=== PATIENT | male | born 1950 | race Two or more races ===

== ENCOUNTER 2024-06-12 08:50 | Outpatient (OUT) | payer MEDICARE, SELFPAY ==
--- NOTE | 2024-06-12 09:01 | ECG_ITS ---
[facility] Test Date: 2024-06-12 Pat Name: MARIA DE JESUS OMALLEY Department: Room: - Gender: Male Web Content Producer: : [id number] Requested By: [id number] Order Number: [id number] Reading MD: VIOLET MONTGOMERY Measurements Intervals Amory Rate: 44 P: 9 AK: 231 QRS: 56 QRSD: 111 T: 42 QT: 426 QTc: 366 Interpretive Statements SINUS BRADYCARDIA WITH FIRST DEGREE AV BLOCK INCOMPLETE RIGHT BUNDLE BRANCH BLOCK [90+ ms QRS DURATION, TERMINAL R IN V1/V2, 40+ ms S IN I/aVL/V4/V5/V6] No previous ECG available for comparison Electronically Signed On 06-12-2024 22:51:41 EST by VIOLET MONTGOMERY
[2024-06-12 10:00] LABS: Basophils Percent Auto 0.9 % (0.2-2.0); Eosinophils Absolute Auto 0.2 10^3/uL (0.0-0.7); Eosinophils Percent Auto 3.9 % (0.9-7.0); Hematocrit 38.8 % (42.0-54.0); Hemoglobin 13.2 g/dL (14.0-18.0); Immature Granulocytes Abs Auto 0.04 10^3/uL (0.00-0.03); Immature Granulocytes Pct Auto 0.9 % (0.0-0.5); Lymphocytes Percent Auto 22.6 % (20.5-60.0); Mean Corpuscular Volume 91.1 fL (80.0-94.0); Mean Platelet Volume 10.9 fL (9.5-13.5); Monocytes Absolute Auto 0.4 10^3/uL (0.3-0.8); Monocytes Percent Auto 9.9 % (1.7-12.0); Neutrophils Absolute Auto 2.7 10^3/uL (1.4-6.5); Neutrophils Percent Auto 61.8 % (43.0-75.0); Platelet Count 198 10^3/uL (150-450); Red Blood Count 4.26 10^6/uL (4.70-6.10); Red Cell Distribution Width 12.6 % (11.0-15.0); White Blood Count 4.3 10^3/uL (4.0-11.0)
[2024-06-12 10:11] LABS: Bilirubin Urine NEGATIVE (NEGATIVE); Blood Urine NEGATIVE (NEGATIVE); Clarity Urine CLEAR (CLEAR); Color Urine LT. YELLOW (YELLOW); Glucose Urine UA NEGATIVE (NEGATIVE); Ketones Urine TRACE mg/dL (NEGATIVE); Leukocyte Esterase Urine NEGATIVE (NEGATIVE); Nitrite Urine NEGATIVE (NEGATIVE); Protein Urine NEGATIVE (NEG/TRACE); Urobilinogen Urine 0.2 EU/dL (0.2-1.0); pH Urine 5.5 (5.0-9.0)
[2024-06-12 10:13] LABS: Urine Microscopic Indicated NO
[2024-06-12 10:14] LABS: INR 1.11; Partial Thromboplastin Time 25.9 sec (22.3-36.2); Prothrombin Time 11.6 sec (9.0-11.6)
[2024-06-12 12:14] LABS: Anion Gap 12.1; Calcium 9.4 mg/dL (8.5-10.1); Carbon Dioxide 29.6 mmol/L (21.0-32.0); Chloride 106 mmol/L (98-107); Estimated GFR (African America >60 (>=60 mL/min/1.73m^2); Estimated GFR (Non-African Ame >60 (>=60 mL/min/1.73m^2); Glucose 97 mg/dL (74-106); Potassium 3.7 mmol/L (3.5-5.1); Sodium 144 mmol/L (136-145)
== END 2024-06-12 08:51 | disposition home or self-care (01) ==
PROVIDERS: PCP Family Medicine; Visit Provider Urology
DX: Z01.810 Encounter for preprocedural cardiovascular examination (principal); Z01.812 Encounter for preprocedural laboratory examination; N20.1 Calculus of ureter
CPT/HCPCS: 36415; 80048; 81003; 85025; 85610; 85730; 93005

== ENCOUNTER 2024-06-14 10:55 | Day surgery (SDC) | payer MEDICARE, SELFPAY ==
[2024-06-12 10:01] VITALS: BP 170/90; PULSE 50; TEMP 36.5; O2SAT 100; BMI 24.5
[2024-06-14] VITALS (9 sets, daily range): BP systolic 168–187; BP diastolic 84–103; PULSE 47–74; TEMP 35.9–36.4; O2SAT 96–100; BMI 24.5
--- NOTE | 2024-06-14 | XR_ITS ---
[address] [address] Patient Name: MARIA DE JESUS OMALLEY MRN: [id number] date: 1950 Sex: M Assigned Patient Location: [facility] Current Patient Location: Accession/Order Number: [id number] Exam Date: 06/14/2024 13:35 Report Date: 06/15/2024 07:41 At the request of: SUKI RYAN Procedure: XR urethrogram retrograde EXAM: XR urethrogram retrograde HISTORY: Kidney stone COMPARISON: None. TECHNIQUE: 8.3 mg. Single fluoroscopic image FINDINGS: Single image demonstrates left double-J ureteral stent in normal position XR/XR urethrogram retrograde IMPRESSION: Left double-J ureteral stent. Electronically authenticated by: VALERI RIBEIRO Date: 06/15/2024 07:41
--- OUTSIDE RECORDS SUMMARY | 2024-06-14 11:14 | XMS_ITS | CCD ---
Author Organization [facility] Care Team Providers Care Cash Register Mechanic Name Role Phone DO Ti Schulz Attending Unavailable VALERI SHAW Primary Care Physician Keshav GARCIA Attending Unavailable Adela Angeles Attending Unavailable Adela Angeles Attending Unavailable JUVE RAMON Attending Unavailab JUVE Cuenca Attending Unavailab le Keshav GARCIA Attending Unavailable COOKDaviKeshav P Referring Unavailable COOKDaviKeshav P Admitting Unavailable COOK, Keshav P Consulting Unavailable MD RADHA Keshav P Consulting Unavailable COOK, Keshav P Consulting Unavailable COOK, Keshav P Consulting Unavailable COOK, Keshav P Consulting Unavailable COOK, Keshav P Consulting Unavailable COOK, Keshav P Consulting Unavailable COOK, Keshav P Consulting Unavailable COOK, Keshav P Consulting Unavailable COOK, Keshav P Consulting Unavailable COOK, Keshav P Consulting Unavailable COOK, Keshav P Consulting Unavailable COOK, Keshav P Consulting Unavailable TRISTENJUVE LEW Admitting UnavailJUVE Cruz Attending Unavailab Cuenca, JUVE Crawford Referring Unavailab Ti Nash Attending Unavailable Allergies Allergy Classification Reported Allergen(s) Allergy Type Date of Onset Reaction(s) Facility (9 sources) Penicillin; Translations: [penicillin] Drug Allergy Eruption of skin (disorder) [facility] Repository Medications Current Medications Medication Drug Class(es) Dates Sig (Normalized) Sig (Original) amLODIPine 2.5 mg oral tablet (6 sources) Dihydropyridine Calcium Channel Marla Start: 06-28-20 20 amLODIPine 2.5 mg Tab Refills(s) 0 Start Date: 06/28/20 Status: Ordered aspirin 81 mg oral tablet (6 sources) Platelet Aggregation Inhibitor, Nonsteroidal Anti-inflammatory Drug Start: 02-21-20 19 take 81 mg by mouth once daily aspirin 81 mg, Oral, Daily, Prophylaxis Start Date: 08/25/18 Status: Ordered atorvastatin 10 mg oral tablet (6 sources) HMG-CoA Reductase Inhibitor Start: 06-28-20 take 5 mg by mouth once daily atorvastatin 10 mg Tab 5 mg, Oral, Daily, Refills(s) 0 Start Date: 06/28/20 Status: Ordered biotin 1 mg oral tablet (6 sources) Start: 06-28-20 take 1 tablet by mouth once daily biotin 1000 mcg oral tablet 1,000 mcg = 1 tab(s), Oral, Daily, # 30 tab(s), Refills(s) 0 Start Date: 06/28/20 Status: Ordered carvedilol 12.5 mg oral tablet (6 sources) alpha-Adrenergic Marla, beta-Adrenergic Marla Start: 06-28-20 take 1 tablet by mouth twice daily carvedilol 12.5 mg Tab 12.5 mg = 1 tab(s), Oral, BID, Refills(s) 0 Start Date: 06/28/20 Status: Ordered Centrum oral tablet (6 sources) Start: 08-25-19 take 1 tablet by mouth once daily Centrum oral tablet 1 tab(s), Oral, Daily, Prophylaxis Start Date: 08/25/18 Status: Ordered Curcumin (6 sources) Start: 08-25-19 take 1 capsule by mouth once daily Curcumin Curcumin, 1 capsule, Oral, Daily, prophylaxis Start Date: 08/25/18 Status: Ordered docusate sodium 100 mg oral capsule (6 sources) Start: 07-04-20 take 1 capsule by mouth twice daily as needed for constipation Colace 100 mg Cap 100 mg = 1 cap(s), Oral, BID, PRN for constipation, # 20 cap(s), Refills(s) 0, Pharmacy: [id number], 188, cm, 06/27/20 10:21:00 EST, Height/Length Dosing, 90.5, kg, 06/27/20 10:21:00 EST, Weight Dosing Start Date: 07/04/20 Status: Ordered Echinacea (6 sources) Start: 06-28-20 take 400 mg by mouth once daily Echinacea 400 mg, Oral, Daily, Refill(s) 0 Start Date: 06/28/20 Status: Ordered hydroCHLOROthiazide 12.5 mg oral tablet (6 sources) Thiazide Diuretic Start: 06-28-20 take 1 tablet by mouth once daily hydrochlorothiazide 12.5 mg Tab 12.5 mg = 1 tab(s), Oral, Daily, Refills(s) 0 Start Date: 06/28/20 Status: Ordered lisinopril 40 mg oral tablet (6 sources) Angiotensin Converting Enzyme Inhibitor Start: 08-25-19 take 40 mg by mouth once daily lisinopril 40 mg, Oral, Daily, High blood pressure Start Date: 08/25/18 Status: Ordered MiraLax oral powder for reconstitution (6 sources) Start: 07-04-20 MiraLax oral powder for reconstitution 17 gram, Oral, Daily, 255 gram, Refill(s) 0, dissolve in water before taking, [facility] #37, 188, cm, 06/27/20 10:21:00 EST, Height/Length Dosing, 90.5, kg, 06/27/20 10:21:00 EST, Weight Dosing Start Date: 07/04/20 Status: Ordered tamsulosin hydrochloride 0.4 mg oral capsule (3 sources) alpha-Adrenergic Marla Start: 06-06-20 take 1 capsule by mouth once daily tamsulosin 0.4 mg Cap 0.4 mg = 1 cap(s), Oral, Daily, # 30 cap(s), Refills(s) 0 Start Date: 06/06/24 Status: Ordered traMADol hydrochloride 50 mg oral tablet (3 sources) Opioid Agonist Start: 06-06-20 take 1 tablet by mouth every four hours as needed for pain traMADOL 50 mg Tab 50 mg = 1 tab(s), Oral, q4hr, PRN for pain, # 60 tab(s), Refills(s) 0 Start Date: 06/06/24 Status: Ordered Vitamin B12 500 mcg oral tablet (6 sources) Start: 06-28-20 take 1 tablet by mouth once daily Vitamin B12 500 mcg oral tablet 500 mcg = 1 tab(s), Oral, Daily, Refills(s) 0 Start Date: 06/28/20 Status: Ordered Zinc (6 sources) Start: 08-25-19 take 50 mg by mouth once daily Zinc 50 mg, Oral, Daily, Prophylaxis Start Date: 08/25/18 Status: Ordered Completed/Discontinued Medications Medication Drug Class(es) Dates Sig (Normalized) Sig (Original) cholecalciferol 0.025 mg oral capsule (6 sources) Vitamin D Start: 06-28-2020 take 1 capsule by mouth once daily cholecalciferol 1000 intl units oral capsule 1,000 International_Unit = 1 cap(s), Oral, Daily, Refills(s) 0 Start Date: 06/28/20 Status: Ordered potassium chloride 20 meq extended release oral tablet (6 sources) Start: 08-25-2018 take 1 tablet by mouth once daily potassium chloride 20 mEq ER Tab 20 mEq = 1 tab(s), Oral, Daily, Prophylaxis Start Date: 08/25/18 Status: Ordered Problems Problem Classification Problem Date Documented Date Episodic/Chronic Abdominal hernia (6 sources) Inguinal hernia 08-25-2018 Episodic Comment on above: left Abdominal pain (1 source) Abdominal pain; Translations: [Unspecified abdominal pain] Onset: 4 Episodic Calculus of urinary tract (12 sources) Ureteric stone; Translations: [Calculus of ureter] Onset: 4 Episodic Chronic obstructive pulmonary disease and bronchiectasis (6 sources) Chronic obstructive lung disease 08-25-2018 Chronic Disorders of lipid metabolism (6 sources) Hypercholesterolemia 08-25-2018 Chronic Essential hypertension (12 sources) Hypertensive disorder 04-30-2024 Chronic Other diseases of kidney and ureters (3 sources) Disorder of kidney and/or ureter; Translations: [Other specified disorders of kidney and ureter] Onset: 4 Chronic Other diseases of kidney and ureters (4 sources) Renal mass 06-06-2024 Chronic Other ear and sense organ disorders (6 sources) Hearing loss 09-06-2018 Chronic Other screening for suspected conditions (not mental disorders or infectious disease) (1 source) Encounter for screening for malignant neoplasm of prostate; Translations: [Screening for malignant neoplasm done] Onset: 4 Episodic Residual codes; unclassified (6 sources) Memory impairment 08-25-2018 Episodic Unclassified (3 sources) Patient encounter status 06-06-2024 Results Test Name Value Interpretation Reference Range Facility Urology Office/Clinic Noteon 06-07-2024 Urology Office/Clinic Note Urology Office/Clinic Note Chief Complaint er f/u HPI Staff New pt f/u to [facility] ED visit on 04/30/24 for left sided abdominal pain without radiation CT, MOOKIE, KUB and UA in chart for review. Pt states he had an episode of abdominal and kidney pain on left side, nausea, but has fine since. This pain lasted all day. [facility], was given tamsulosin, which he is done with, and tramadol for the pain pt did bring in, what he thinks may be a kidney stone, that he found n his strainer at home, after the episode of left-sided pain Dysuria: no Incomplete bladder emptying: _no Hematuria: _no Frequency: _q2-3 hrs Urgency: _no Nocturia: _no Stream: _normal Leaking: _no Post void dripping: _no Wearing pads/ Depends: _no Urge incontinence: _no Stress incontinence: _no Incontinence without Sensory Awareness: _no Abdominal pain: _left side Flank pain: _left side Sexual complaints: _ History of Present Illness staff HPI reviewed and agree. Tests Reviewed: Reviewed UA, MOOKIE, AXR, CT AP. Review of Systems PHQ Score Initial Depression Screen Score: 0 SCORE no fever, chills, malaise, myalgia. no rash/lesions. no chest pain, palpitations, or SOB. no abdominal pain, nausea, vomiting. no unilateral calf swelling, redness, pain Physical Exam Vitals & Measurements HR: 62(Peripheral) BP: 136/86 HT: 74 in HT: 187.5 cm WT: 87.4 kg WT: 192.684 lb BMI: 24.86 General: nontoxic, NAD Mouth: moist mucosa Lungs: normal respiratory effort Cardio: regular rate, good distal perfusion Abdomen: nondistended, no suprapubic distention or tenderness, no CVA tenderness Neurologic: Grossly normal Skin: No rashes or suspicious lesions Assessment/Plan 1. Left ureteral stone (N20.1: Calculus of ureter) CT AP w con 04/30/24- mild left-sided hydronephrosis and hydroureter noted at the level of an obstructing distal left ureteral stone just proximal to the UV junction measuring 5 x 5 mm. Right-sided nonobstructing renal calyceal stones are noted. MOOKIE 05/22/24 [facility]- 3.0 cm solid left renal mass, likely primary neoplasm, similar to recent CT. No hydronephrosis. KUB 05/22/24 [facility]- Possible left distal ureteral calculus. UA today show trace intact blood. Pt still having episodes of severe pain as recently as 4 days ago. Had to take opiates. Did pass and bring a tiny (1mm) arianne but does not appear large enough to be c/w the 5mm obstructing stone. Not currently having pain today. Did finish the Flomax a few days ago (30d rx). Won't refill as it's unlikely to help at this point. Denies F/C/N/V. No signs of sepsis. -Will obtain STAT CT w/o con today to confirm stone position. Pt to f/u tomorrow w KML to discuss stone treatment options, likely laser lithotripsy. 2. Kidney stones (N20.0: Calculus of kidney) CT AP w con 04/30/24- 2 non-obstructing R renal up to 4mm, none in L kidney +hx stones, distant past per his , he didn't remember this. Not sure if he passed it on his own or required surgery. Ordered: CT Abdomen/Pelvis w/o Contrast Urnls Dip Stick Auto w/o Microscopy POC [id number] 3. Left kidney mass (N28.89: Other specified disorders of kidney and ureter) CT AP AP w con 04/30/24 - Exophytic left-sided renal tumor measures 2.8 x 2.7 cm highly suspicious for malignancy requiring definitive evaluation. I did go back to his CT from Jun 2020 (also [facility]) which noted 1.4 cm rounded partially exophytic structure projecting off the lateral cortex of the inferior left kidney, that is of higher attenuation than a simple cyst, but lower in attenuation than contrast enhancing cortical tissue. However, this was not evident on the prior study. This could represent a hyperdense cyst, but a mass is not excluded. Follow-up is recommended. Pt mentioned he was aware of this but had a family member who is a surgeon at [facility] look at his scans and they told him not to worry about it. I did not go into great detail regarding the current CT findings except to say that the mass does appear about double the previous size and does look suspicious for ca at this point. -KML will discuss monitoring/treatment options at length at tomorrow. 4. Prostate cancer screening (Z12.5: Encounter for screening for malignant neoplasm of prostate) Requested from [facility]. Verbally over the phone staff relayed that most recent result was normal. Await fax. Follow-up With When Contact Information Karthik WILLSON, Adela Rios, AKILL, URO Additional Instructions: CT scan today at [facility]. visit w Dr Angeles tomorrow at [place] office. Patient Education Kidney Stones, [id number] Beba Whitten, personally scribed for WILLOW Velazquez on 06/06/2024 11:29:30. . Documentation recorded by the j luis Sloan_ accurately reflects the services(s) I performed and decisions made by me. Authenticated by Dulce Ramon PA-C on 06/06/2024 11:45:13. Problem List/Past Medical History Ongoing No (more content not included)... Normal [facility] Comment on above: Result Comment: Elec tronically Signed By: DULCE RAMON PA-C\.br\Date and Time Signed: 06/07/24 15:44 EST\.br\Electronically Co-Signed By: Beba Sloan\.br\Date and Time Co-Signed: 06/06/24 11:30 EST Urology Office/Clinic Note Urology Office/Clinic Note Chief Complaint f/u CT scan kidney stone & bladder mass HPI Staff 74yr old male pt here for renal mass and kidney stones. Pt was seen yesterday for ER f/u. Pt states he has not passed the 5mm stone. CT w/o contrast completed 06/06/24 showing resolved left hydronephrosis, distal left ureteral calculus, renal mass suspicious for renal cell carcinoma, few hyperdense cysts. Pt unable to provide urine sample at this time. Previous Dx: left ureteral stone, kidney stones, left kidney mass, prostate cancer screening Dysuria: denies Incomplete bladder emptying: denies Hematuria: denies Frequency: every 2-3hrs Urgency: denies Nocturia: denies Stream: normal Leaking: denies Post void dripping: denies Wearing pads/ Depends: denies Urge incontinence: denies Stress incontinence: denies Incontinence without Sensory Awareness: denies Abdominal pain: denies Flank pain: denies History of Present Illness Tests reviewed: External records including CT AP w/o con, labs, prior CT scans I have reviewed the previous health record information and history for this patient from Dulce Ramon PA-C And external providers I have reviewed and verified the staff HPI to be accurate for this encounter. There have been no associated fever, chills, or blood in the urine. Denies any urinary infections since last encounter. Review of Systems PHQ Score Initial Depression Screen Score: 0 SCORE ROS - Provider Constitutional: denies weight loss, denies hot flashes. Eyes: denies eye problems. Gastrointestinal: denies nausea, denies vomiting. Cardiovascular: denies chest pain or angina. Integumentary: no dryness Musculoskeletal: denies musculoskeletal symptoms. ENMT: denies otolaryngeal symptoms. Respiratory: no shortness of breath. Heme/Lymph: denies easy bleeding tendency, denies easy bruising tendency. Psychiatric: no confusion, no anxiety. Genitourinary: See HPI. Physical Exam Vitals & Measurements T: 37 ???C(Oral) HR: 51(Peripheral) RR: 18 BP: 120/79 HT: 74 in HT: 187 cm WT: 87.5 kg WT: 192.904 lb BMI: 25.02 General Appearance: alert, no distress, well nourished, well developed male. Head: normocephalic . Eyes: normal orbit and globe. ENMT: normal examination of external ears. Chest: symmetric chest rise, respirations non labored. Cardiovascular: regular rate and rhythm. Abdomen: soft, non distended, no tenderness, midline lower incisional scar well healed, laparoscopic incisions Genitourinary: Flank Pain: none. Bladder: nonpalpable. Skin: warm, dry, no bruising. Psychiatric: cooperative, affect appropriate for age, normal judgement, euthymic mood. Assessment/Plan Amish is a 74 yo male pt last seen IO by JENI here today for follow up of current ureteral stone and renal mass. Denies any hx of heart attack or stroke. Has had laparoscopic BL inguinal hernia repairs, with mesh 2019 Ex lap for perforated appendicitis 2019 Portions of this record may have been created with voice recognition artificial intelligence software, specifically [employer], [employer] and or [employer]. Substitutions may have occurred due to the inherent limitations of voice recognition and artificial intelligence software. 1. Ureteral stone (N20.1: Calculus of ureter) CT AP w con 04/30/24- mild left-sided hydronephrosis and hydroureter noted at the level of an obstructing distal left ureteral stone just proximal to the UV junction measuring 5 x 5 mm. Right-sided nonobstructing renal calyceal stones are noted. MOOKIE 05/22/24 [facility]- 3.0 cm solid left renal mass, likely primary neoplasm, similar to recent CT. No hydronephrosis. KUB 05/22/24 [facility]- Possible left distal ureteral calculus. CT AP w/o Con 06/06/24 - resolve hydronephrosis, an approx 5-6mm distal Lt ureteral stone in the similar position, and an approx 2cm superior to the Lt UVJ UA today show trace intact blood. Discussed management options including medical expulsive therapy x 4-6 week vs intervention including extracorporeal shockwave lithotripsy vs ureteroscopy with laser lithotripsy/stone basket extraction possible stent. Risks/benefits of each were discussed including but not limited to: MET- renal damage, pain or infection; ESWL- bleeding, hematoma, pain, infection, inability to break up the stone, ureteral obstruction, cardiac arrhythmias, damage to surrounding structures and need for additional procedures; ureteroscopy - bleeding, pain, infection, damage to surrounding structures, ureteral perforation, stricture, inability to treat the stone and need for additional procedures. If a stent is placed, pt understands this is not permanent and needs to be removed or exchanged within 3 months to prevent encrustation, infection, permanent renal damage and need for more invasive procedures. --Discussed imaging results with pt. Advised pt that the stone has not moved and recommend proceeding with surgery for removal given failed (more content not included)... Normal [facility] Comment on above: Result Comment: Elec tronically Signed By: Adela Angeles MD\.br\Date and Time Signed: 06/07/24 12:02 EST\.br\Electronically Co-Signed By: Vianca Casas\.br\Date and Time Co-Signed: 06/07/24 11:36 EST Ambulatory Visit Summaryon 1 08-07-2023 Ambulatory Visit Summary Ambulatory Visit Summary AMISH OMALLEY :1950 Visit Date:06/06/2024 Ambulatory Visit Instructions Your Diagnosis Left ureteral stone Kidney stones Left kidney mass Prostate cancer screening Your Care Team Attending Physician - DULCE RAMON PA-C Primary Care Physician - VALERI SHAW DO This Is Your Medications List Contact prescribing physician if questions or concerns Patient Specific Meds (Curcumin) amlodipine (amLODIPine 2.5 mg Tab) aspirin atorvastatin (atorvastatin 10 mg Tab) biotin (biotin 1000 mcg oral tablet) carvedilol (carvedilol 12.5 mg Tab) cholecalciferol (cholecalciferol 1000 intl units oral capsule) cyanocobalamin (Vitamin B12 500 mcg oral tablet) docusate (Colace 100 mg Cap) echinacea (Echinacea) hydrochlorothiazide (hydrochlorothiazide 12.5 mg Tab) lisinopril multivitamin with minerals (Centrum oral tablet) polyethylene glycol 3350 (MiraLax oral powder for reconstitution) potassium chloride (potassium chloride 20 mEq ER Tab) tamsulosin (tamsulosin 0.4 mg Cap) tramadol (traMADOL 50 mg Tab) zinc sulfate (Zinc) Procedures Performed Appendectomy (06/27/2020), BILATERAL ROBOT ASSISTED LAPROSCOPIC INGUINAL HERNIA REPAIR WITH MESH (09/06/2018), Arthroscopy of knee (04/2017), excision of bone chip rt index finger. Discharge Vitals Heart Rate (Peripheral) 62 Blood Pressure 136/86 Height 187.5 cm Height 74 in Weight 87.4 kg Weight 192.684 lb BMI 24.86 What to do next Scheduled Follow-Up Appointments Wednesday 10:15 AM EST With: Adela Angeles MD Where: [facility] [address] [place] [address]- You Need to Schedule the Following Appointments Follow Up with Adela Angeles MD, URL, URO When: Where: Medications What How Much When Instructions Unchanged amlodipine (amLODIPine 2.5 mg Tab) Contact prescribing physician if questions or concerns Unchanged aspirin 81 Milligram By Mouth Every day Contact prescribing physician if questions or concerns Unchanged atorvastatin (atorvastatin 10 mg Tab) 5 Milligram By Mouth Every day Contact prescribing physician if questions or concerns Unchanged biotin (biotin 1000 mcg oral tablet) 1 Tablets By Mouth Every day Contact prescribing physician if questions or concerns Unchanged carvedilol (carvedilol 12.5 mg Tab) 1 Tablets By Mouth 2 times a day Contact prescribing physician if questions or concerns Unchanged cholecalciferol (cholecalciferol 1000 intl units oral capsule) 1 Capsules By Mouth Every day Contact prescribing physician if questions or concerns Unchanged cyanocobalamin (Vitamin B12 500 mcg oral tablet) 1 Tablets By Mouth Every day Contact prescribing physician if questions or concerns Unchanged docusate (Colace 100 mg Cap) 1 Capsules By Mouth 2 times a day as needed for for constipation Contact prescribing physician if questions or concerns Unchanged echinacea (Echinacea) 400 Milligram By Mouth Every day Contact prescribing physician if questions or concerns Unchanged hydrochlorothiazide (hydrochlorothiazide 12.5 mg Tab) 1 Tablets By Mouth Every day Contact prescribing physician if questions or concerns Unchanged lisinopril 40 Milligram By Mouth Every day Contact prescribing physician if questions or concerns Unchanged multivitamin with minerals (Centrum oral tablet) 1 Tablets By Mouth Every day Contact prescribing physician if questions or concerns Unchanged Patient Specific Meds (Curcumin) 1 capsule By Mouth Every day prophylaxis Contact prescribing physician if questions or concerns Unchanged polyethylene glycol 3350 (MiraLax oral powder for reconstitution) 17 Gram By Mouth Every day dissolve in water before taking Contact prescribing physician if questions or concerns Unchanged potassium chloride (potassium chloride 20 mEq ER Tab) 1 Tablets By Mouth Every day Contact prescribing physician if questions or concerns Unchanged tamsulosin (tamsulosin 0.4 mg Cap) 1 Capsules By Mouth Every day Contact prescribing physician if questions or concerns Unchanged tramadol (traMADOL 50 mg Tab) 1 Tablets By Mouth Every 4 hours as needed for for pain Contact prescribing physician if questions or concerns Unchanged zinc sulfate (Zinc) 50 Milligram By Mouth Every day Contact prescribing physician if questions or concerns Allergies penicillin (Rash) Problems Ongoing - Any problem that you are currently receiving treatment for. Kidney stones Left kidney mass Left ureteral stone Prostate cancer screening Historical - Any problem that you are no longer receiving treatment for. Hypertension Patient Survey You may receive a survey via text or e-mail asking about your office visit. Please share your experience with us by completing your survey. We appreciate your feedback and thank you for choosing us for your care. Education Materials Kidney Stones [Image R (more content not included)... Normal [facility] CT Abdomen/Pelvis w/o Ayah smith 06-06-2024 CT Abdomen/Pelvis w/o Contrast Exam Date/Time: 06/06/2024 14:33 EST Reason for Exam: Kidney stones;Other (please specify) Report IMPRESSION: RESOLVED LEFT HYDRONEPHROSIS WITHOUT OTHER SIGNIFICANT CHANGES IDENTIFIED FROM 04/30/2024. CLINICAL HISTORY: Kidney stones. COMPARISON: 04/30/2024. TECHNIQUE: Spiral unenhanced images were obtained from above the kidneys through the urinary bladder without contrast. All CT scans at this facility use dose modulation, iterative reconstruction, and/or weight based dosing when appropriate to reduce radiation dose to as low as reasonably achievable. Unless otherwise stated, incidental findings identified in this report do not require routine follow-up imaging. FINDINGS: Liver: No enlargement, significant fatty infiltration, or suspicious lesion identified of the visualized segments without contrast. A few small low densities is again noted. Biliary: The gallbladder is unremarkable. No abnormal biliary ductal dilatation. Pancreas: No mass, organized fluid collection, or abnormal pancreatic ductal dilatation. Spleen: Unremarkable. Adrenals: Unremarkable. Kidneys: Resolved left hydronephrosis from 04/30/2024. An approximately 5 to 6 mm distal left ureteral calculus remains in similar position, approximately 2 cm superior to the left UVJ. Similar mild ill-defined perinephric edema, more prominently on the left. 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 GI tract: No abnormal dilation or wall thickening. Mild colonic diverticulosis. The appendix has been removed. Lymph nodes: No pathologically enlarged lymph nodes. Vasculature: No aneurysm. Minimal to mild calcified atherosclerotic plaquing. Mesentery/peritoneum/ret roperitoneum: No ascites or organized fluid collection. Pelvis: The moderately distended urinary bladder is otherwise unremarkable. Bones/soft tissue: No acute osseous findings identified. Moderately extensive degenerative changes of the lumbar spine. Lower thorax: Noncontributory. Report Ordering Provider: , FINAL REPORT Dictated: 06/06/2024 2:48 pm Pierce Guerrero MD Signed (Electronic Signature): 06/06/2024 2:48 pm Signed by: Pierce Guerrero MD Transcribed by: SHAR Technologist: ANGELICA Technical Comments Rectal Contrast Given? No Oral contrast amount in ml's: 0 Normal [facility] US Renalon 05-23-2024 US Renal Exam Date/Time: 05/22/2024 08:08 EST Reason for Exam: kidney stone;Other (please specify) Report IMPRESSION: 3.0 cm solid left renal mass, likely primary neoplasm, similar to recent CT. No hydronephrosis. HISTORY: Kidney stones. Left renal mass. TECHNIQUE: Sonography of the kidneys was performed. Images were obtained and stored in a permanent archive. Unless otherwise stated, incidental findings identified in this report do not require routine follow-up imaging. COMPARISON: CT 04/30/2024. RESULT: Right Kidney: -Renal length: 11.2 cm cm -Parenchyma: Normal parenchymal echogenicity. Normal parenchymal thickness. -Collecting system: No hydronephrosis. -Calculus: No echogenic, shadowing calculus sonographically. -Lesion: 3.0 cm simple appearing cyst laterally and additional 1.8 cm simple appearing cyst, grossly similar to the prior CT. Left Kidney: -Renal length: 10.5 cm cm -Parenchyma: Normal parenchymal echogenicity. Normal parenchymal thickness. -Collecting system: No hydronephrosis. -Calculus: No echogenic, shadowing calculus sonographically. -Lesion: 3.0 x 2.9 x 2.7 cm solid mass with shadowing internal vascularity, likely primary renal neoplasm, similar to the recent CT. Bladder: Not evaluated. Ordering Provider: Keshav GARCIA FINAL REPORT Dictated: 05/23/2024 1:25 pm Konrad Freeman MD Signed (Electronic Signature): 05/23/2024 1:25 pm Signed by: Konrad Freeman MD Transcribed by: SHAR Technologist: ISAIAH Mathias [facility] XR Abdomen 1 Viewon 05-23-20 24 XR Abdomen 1 View Exam Date/Time: 05/22/2024 08:14 EST Reason for Exam: N20.0 Calculus of kidney;Kidney stone Report IMPRESSION: Possible left distal ureteral calculus. EXAMINATION/TECHNIQUE: XR Abdomen 1 View HISTORY: History of kidney stones. COMPARISON: CT 04/30/2024. RESULT: No distinct locations projecting over these kidneys radiographically. Multiple pelvic calcifications, mostly phleboliths, with possible left distal ureteral calculus versus phlebolith. Nonspecific nondilated bowel gas pattern. Feces throughout the colon. Lung bases unremarkable. No acute osseous findings. Degenerative changes. Ordering Provider: Keshav GARCIA FINAL REPORT Dictated: 05/23/2024 1:31 pm Konrad Freeman MD. Signed (Electronic Signature): 05/23/2024 1:31 pm Signed by: Konrad Freeman MD Transcribed by: SHAR Technologist: JONATHAN Technical Comments Radiation Dose: Ka,r in mGy = na DAP = na Normal [facility] BMPon 04-30-2024 Anion gap [Moles/Vol] 12 mmol/L Normal 6-[address] [facility] Comment on above: Performed By: #### 2 [id number] #### [facility] Laboratory [address] [place] [address] Calcium [Mass/Vol] 9.9 mg/dL Normal 8.9-11.1 [facility] Comment on above: Performed By: #### 2 [id number] #### [facility] [address] [place] [address] Chloride [Moles/Vol] 103 mmol/L Normal 101-111 [facility] Comment on above: Performed By: #### 2 [id number] #### [facility] [address] [place] [address] CO2 [Moles/Vol] 29 mmol/L Normal - [facility] Comment on above: Performed By: #### 2 [id number] #### [facility] [address] [place] [address] Creatinine [Mass/Vol] 1.0 mg/dL Normal 0.5-1.[address] [facility] Comment on above: Performed By: #### 2 [id number] #### [facility] [address] [place] [address] Glucose [Mass/Vol] 119 mg/dL Normal 55-199 [facility] Comment on above: Performed By: #### 2 [id number] #### [facility] [address] [place] [address] Potassium [Moles/Vol] 3.4 mmol/L Low 3.5-5.3 [facility] Comment on above: Performed By: #### 2 [id number] #### [facility] [address] [place] [address] Sodium [Moles/Vol] 141 mmol/L Normal 135-145 [facility] Comment on above: Performed By: #### 2 [id number] #### [facility] [address] [place] [address] Urea nitrogen [Mass/Vol] 18 mg/dL Normal 5-21 [facility] Comment on above: Performed By: #### 2 [id number] #### [facility] [address] [place] [address] Urea nitrogen/Creatinine [Mass ratio] 18 No Units Normal 10-20 [facility] Comment on above: Performed By: #### 2 [id number] #### [facility] [address] [place] [address] CBC w/ Auto Diffon 4 Basophils/100 WBC (Bld) 0.3 % Normal 0.0-2.0 [facility] Comment on above: Performed By: #### 2 [id number] #### [facility] [address] [place] [address] Basophils/Leukocytes Auto (Bld) [Pure # fraction] 0.0 E9/L Normal 0.0-0.2 [facility] Comment on above: Performed By: #### 2 [id number] #### [facility] [address] [place] [address] Eosinophils (Bld) [#/Vol] 0.4 E9/L Normal 0.0-0.5 [facility] Comment on above: Performed By: #### 2 [id number] #### [facility] [address] [place] [address] Eosinophils/100 WBC (Bld) 3.4 % Normal 0.0-8.0 [facility] Comment on above: Performed By: #### 2 [id number] #### [facility] [address] [place] [address] Erythrocyte distribution width (RBC) [Ratio] 13.4 % Normal 10.9-14.2 [facility] Comment on above: Performed By: #### 2 [id number] #### [facility] [address] [place] [address] Hematocrit (Bld) [Volume fraction] 42.2 % Normal 37.7-49.0 [facility] Comment on above: Performed By: #### 2 [id number] #### [facility] [address] [place] [address] Hemoglobin (Bld) [Mass/Vol] 14.8 g/dL Normal 13.5-17.5 [facility] Comment on above: Performed By: #### 2 [id number] #### [facility] [address] [place] [address] Lymphocytes (Bld) [#/Vol] 0.7 E9/L Low 1.0-4.0 [facility] Comment on above: Performed By: #### 2 [id number] #### [facility] [address] [place] [address] Lymphocytes/100 WBC (Bld) 5.7 % Low 14.0-50.0 [facility] Comment on above: Performed By: #### 2 [id number] #### [facility] [address] [place] [address] MCH (RBC) [Entitic mass] 31.2 pg Normal 27.0-34.0 [facility] Comment on above: Performed By: #### 2 [id number] #### [facility] [address] [place] [address] MCHC (RBC) [Mass/Vol] 35.1 g/dL Normal 31.4-36.[address] [facility] Comment on above: Performed By: #### 2 [id number] #### [facility] [address] [place] [address] MCV (RBC) [Entitic vol] 88.9 fL Normal 80.0-100.0 [facility] Comment on above: Performed By: #### 2 [id number] #### [facility] [address] [place] [address] Monocytes (Bld) [#/Vol] 0.8 E9/L Normal 0.2-1.0 [facility] Comment on above: Performed By: #### 2 [id number] #### [facility] [address] [place] [address] Neutrophils (Bld) [#/Vol] 10.8 E9/L High 2.0-7.5 [facility] Comment on above: Performed By: #### 2 [id number] #### [facility] [address] [place] [address] Neutrophils/100 WBC (Bld) 84.5 % High 36.0-75.0 [facility] Comment on above: Performed By: #### 2 [id number] #### [facility] [address] [place] [address] Platelet 215.0 E9/L Normal 150.0-500.0 [facility] Comment on above: Performed By: #### 2 [id number] #### [facility] [address] [place] [address] Platelet mean volume (Bld) [Entitic vol] 8.2 fL Normal 6.4-10.8 [facility] Comment on above: Performed By: #### 2 [id number] #### [facility] [address] [place] [address] RBC (Bld) [#/Vol] 4.8 E12/L Normal 4.3-5.9 [facility] Comment on above: Performed By: #### 2 [id number] #### [facility] [address] [place] [address] WBC corrected for nucl RBC Auto (Bld) [#/Vol] 12.7 E9/L High 4.0-11.0 [facility] Comment on above: Performed By: #### 2 [id number] #### [facility] [address] [place] [address] CHEMISTRYOrdered By: SYSTEM SYSTEM on 04-30-2024 Albumin [Mass/Vol] 4.7 g/dL Normal 3.3 - 5.0 gm/dL Remisol Chem Albumin/Globulin [Mass ratio] 1.7 {ratio} Normal 1.1 - 2.2 Remisol Chem ALP [Catalytic activity/Vol] 73 [iU]/d Normal 21 - 98 Int._Unit/L Remisol Chem ALT No additional P-5'-P [Catalytic activity/Vol] 13 [iU]/d Normal 6 - 46 Int._Unit/L Remisol Chem Anion gap [Moles/Vol] 12 mmol/L Normal 6 - 16 mEq/L R emisol Chem AST [Catalytic activity/Vol] 15 [iU]/d Normal 5 - 43 Int._Unit/L Remisol Chem Bilirubin [Mass/Vol] 0.8 mg/dL Normal 0.0 - 1 .1 mg/dL Remisol Chem Bilirubin.direct [Mass/Vol] 0.2 mg/dL Normal 0.0 - 0.4 mg/dL Remisol Chem Bilirubin.indirect [Mass or moles/Vol] 0.6 mg/dL Normal 0.1 - 0.9 mg/dL Remisol Chem Calcium [Mass/Vol] 9.9 mg/dL Normal 8.9 - 11. 1 mg/dL [facility] Chem Chloride [Moles/Vol] 103 mmol/L Normal 101 - 1 11 mmol/L [facility] Chem CO2 [Moles/Vol] 29 mmol/L Normal 21 - 31 mmol/L [facility] Creatinine [Mass/Vol] 1.0 mg/dL Normal 0.5 - 1.3 mg/dL Remisol Chem eGFR 78 mL/min/1.73 m2 Normal >=59mL/min /1 .73 m2 Rem[facility] Chem Globulin (S) [Mass/Vol] 2.7 g/dL Normal 1.4 - 4.0 gm/dL Remisol Chem Glucose [Mass/Vol] 119 mg/dL Normal 55 - 199 mg/dL Remisol Chem Lipase [Catalytic activity/Vol] 26 U/L Normal 13 - 58 unit/L Rem[facility] Chem Potassium [Moles/Vol] 3.4 mmol/L Low 3.5 - 5.3 mmol/L Remisol Chem Protein [Mass/Vol] 7.4 g/dL Normal 6.0 - 7.8 gm/dL Rem[facility] Chem Sodium [Moles/Vol] 141 mmol/L Normal 135 - 145 mmol/L Rem[facility] Chem Urea nitrogen [Mass/Vol] 18 mg/dL Normal 5 - 21 mg/dL [facility] Chem Urea nitrogen/Creatinine [Mass ratio] 18 mg/mg Normal 10 - [address] Abdomen/Pelvis w/ Contras ton 04-30-2024 CT Abdomen/Pelvis w/ Contrast Exam Date/Time: 04/30/2024 06:48 EDT Reason for Exam: ABDOMINAL PAIN, ACUTE, NONLOCALIZED;Other (please specify) Report IMPRESSION: MILD LEFT-SIDED HYDROURETERONEPHROSIS SECONDARY TO A 5 MM CALCULUS WITHIN THE DISTAL LEFT URETER. NONOBSTRUCTING RIGHT RENAL CALCULI. 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 COLONIC DIVERTICULOSIS WITHOUT DIVERTICULITIS. EXAM: CT Abdomen/Pelvis w/ Contrast History: Abdominal pain Technique: Multiple contiguous axial images were obtained of the abdomen and pelvis from the level of the lung bases through the ischial tuberosities with contrast. Multiplanar reformats were obtained. Delayed images were obtained. Unless otherwise stated, incidental findings identified in this report do not require routine follow-up imaging. Comparison: CT abdomen pelvis 06/27/2020 Findings: Bilateral dependent atelectasis. Multiple scattered liver cysts are again identified. The spleen, stomach, pancreas, gallbladder, and adrenal glands are within normal limits. The kidneys enhance uniformly. Mild left-sided hydroureteronephrosis secondary to 5 mm calculus within the distal left ureter just proximal to the ureterovesicular junction. 2 nonobstructing right renal calculi measuring up to 4 mm. 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 A heterogenous enhancing mass of the left kidney measures approximately 3 cm. Simple 1 cm left renal cyst. Urinary bladder is well distended. The prostate is not enlarged. Abdominal aorta is nonaneurysmal. Atherosclerotic calcification of the abdominal aorta. No retroperitoneal or abdominal/pelvic lymphadenopathy. No small bowel obstruction. Colonic diverticuli are identified. No overt colonic mass or pericolonic inflammation. The appendix is absent. No free fluid or free air. No acute osseous abnormality. Degenerative changes of the spine. Report All CT scans at this facility use dose modulation, iterative reconstruction, and/or weight based dosing when appropriate to reduce radiation dose to as low as reasonably achievable. Ordering Provider: Ti Schulz FINAL REPORT Dictated: 04/30/2024 4:45 pm Niall Hay DO Signed (Electronic Signature): 04/30/2024 4:45 pm Signed by: Niall Hay DO Transcribed by: SHAR Technologist: KASEY Technical Comments GFR (mL/min/1/73m2) 78 Contrast: Isovue 300 Contrast amount in ml's: 100 Normal [facility] ED Clinical Summaryon 2023 ED Clinical Summary ED Clinical Summary [place] [id number] ED Clinical Summary Person Information Name: AMISH OMALLEY [facility]i/[facility] Age: 73 Years : 1950 Sex: Male Language: British PCP: VALERI SHAW DO Marital Status: Phone: [phone] Visit Id: Visit Reason: Nausea; Abdominal pain; SD PAIN Speciality: Acuity: 3 Enc Type: Emergency Med Service: Emergency Arrival: 04/30/2024 05:02:56 Discharge: 04/30/2024 11:06:34 LOS: 000 06:04 Checkin: 04/30/2024 05:02:56 Checkout: 04/30/2024 11:06:34 Dispo Type: Home (Routine DC) EVENTS: Event Name Event Status Request Date/Time Start Date/Time Complete Date/Time Arrive Complete 04/30/2024 05:02:56 04/30/2024 05:02:56 04/30/2024 05:02:56 Document Home Meds Request 04/30/2024 05:02:56 Triage Complete 04/30/2024 05:02:56 04/30/2024 05:13:54 04/30/2024 05:13:54 Dr Exam Complete 04/30/2024 05:09:57 04/30/2024 05:09:57 04/30/2024 05:09:57 Registration Complete 04/30/2024 05:09:57 04/30/2024 05:15:42 04/30/2024 06:25:55 Bed Assign Complete 04/30/2024 05:15:42 04/30/2024 05:15:42 04/30/2024 05:15:42 RN Exam Complete 04/30/2024 05:15:42 04/30/2024 05:19:25 04/30/2024 05:19:25 CT Complete 04/30/2024 05:20:43 04/30/2024 06:32:55 04/30/2024 06:48:12 Pending Labs Complete 04/30/2024 05:20:43 04/30/2024 09:11:53 Lab Complete 04/30/2024 05:20:43 04/30/2024 06:30:56 Meds Admin Complete 04/30/2024 05:20:43 04/30/2024 05:35:02 Patient Care Complete 04/30/2024 05:20:43 04/30/2024 05:38:19 Pending Labs Complete 04/30/2024 06:03:13 04/30/2024 06:03:13 04/30/2024 06:30:56 Lab Complete 04/30/2024 06:03:13 04/30/2024 06:03:13 04/30/2024 06:30:56 Reg Complete Request 04/30/2024 06:25:55 Reg Bed Request Complete 04/30/2024 06:25:55 04/30/2024 06:25:55 04/30/2024 06:25:55 Meds Admin Complete 04/30/2024 06:55:02 04/30/2024 06:59:46 Dr Exam Complete 04/30/2024 07:06:02 04/30/2024 07:06:02 04/30/2024 07:06:02 Registration Request 04/30/2024 07:06:02 Meds Admin Complete 04/30/2024 07:20:27 04/30/2024 07:25:28 Discharge Complete 04/30/2024 09:19:54 04/30/2024 11:06:41 04/30/2024 11:06:41 Transfer Complete 04/30/2024 11:06:41 04/30/2024 11:06:41 04/30/2024 11:06:41 ADDRESS: [address] [place] [id number] PHYS DOC NOTES: Addendum by Georgina Hassan M.D. on April 30, 2024 09:20:15 EDT MEDICAL INFORMATION: Prescriptions Given: Medications to Continue with No Changes Other Medications amlodipine (amLODIPine 2.5 mg Tab) aspirin 81 Milligram By Mouth every day. atorvastatin (atorvastatin 10 mg Tab) 5 Milligram By Mouth every day. biotin (biotin 1000 mcg oral tablet) 1 Tablets By Mouth every day. carvedilol (carvedilol 12.5 mg Tab) 1 Tablets By Mouth 2 times a day. cholecalciferol (cholecalciferol 1000 intl units oral capsule) 1 Capsules By Mouth every day. cyanocobalamin (Vitamin B12 500 mcg oral tablet) 1 Tablets By Mouth every day. docusate (Colace 100 mg Cap) 1 Capsules By Mouth 2 times a day as needed for constipation. Refills: 0. echinacea (Echinacea) 400 Milligram By Mouth every day. hydrochlorothiazide (hydrochlorothiazide 12.5 mg Tab) 1 Tablets By Mouth every day. lisinopril 40 Milligram By Mouth every day. multivitamin with minerals (Centrum oral tablet) 1 Tablets By Mouth every day. Patient Specific Meds (Curcumin) 1 capsule By Mouth every day. prophylaxis. polyethylene glycol 3350 (MiraLax oral powder for reconstitution) 17 Gram By Mouth every day. dissolve in water before taking. Refills: 0. potassium chloride (potassium chloride 20 mEq ER Tab) 1 Tablets By Mouth every day. zinc sulfate (Zinc) 50 Milligram By Mouth every day. PATIENT EDUCATION INFORMATION: Instructions: Kidney Stones Follow up: With: Address: When: Keshav BAUER, [address], [address] [address] Business (1) In 3 days 05/03/2024 Comments: The CAT scan of your abdomen and pelvis today showed a mass/tumor on the left kidney. Make sure to strain the urine as discussed and make sure to follow-up with Dr. Garcia for the kidney mass/tumor as well. Return to the emergency room if your pain recurs or any new symptoms. With: Address: When: VALERI Neal [facility], [address] [address] Business (1) In 3 days DIAGNOSIS: 1:Left ureteral stone; 2:Left renal mass; Abdominal pain Normal [facility] ED Note-Physicianon 04-30-20 ED Note-Physician ED Note-Physician Basic Information Time Seen: Ti Schulz DO 04/30/2024 05:09 Chief Complaint (L) sided ABD pain without radiation since 0200. Nausea. Denies urinary complaints. History of Present Illness HPI: Patient is a 73-year-old male with past medical history of hypertension who presents the ED for left-sided abdominal pain. Patient states that it woke him up out of sleep at approximately 0 200 tonight and has been constant since that time. The pain does not radiate. Nothing seems to make it better or worse. He initially had some nausea which is since resolved. He denies any vomiting or diarrhea. He denies any dysuria, frequency, or urgency. He denies any fever or chills. He has never had anything like this in the past. ROS: Pertinent review of systems conducted and is negative except as noted above. Physical exam: General: nontoxic appearing and in no distress HEENT: Mucous membranes moist Neuro: awake and alert Neck: supple, trachea midline Card: Heart regular rate and rhythm no murmur Resp: Lungs clear to auscultation no wheeze or rhonchi Abd: Soft and nondistended. Tenderness focally of the left mid abdomen. No rebound or guarding. No CVA tenderness. Ext: No gross deformity or edema Physical Exam Vitals & Measurements T: 36.6 ???C(Oral) HR: 54(Peripheral) RR: 16 BP: 196/105 SpO2: 99% HT: 187.9 cm WT: 85.5 kg BMI: 24.22 Medical Decision Making MEDICAL DECISION MAKING Number and Complexity of Problems Differential Diagnosis: [] [facility] Data External documents reviewed: N/A My EKG interpretation: Noted in chart if applicable My CT interpretation: N/A My X-ray interpretation: Noted in chart if applicable My Ultrasound interpretation: N/A Decision rules/scores evaluated: N/A Discussed with: N/A Treatment and Disposition ED Course: Patient is nontoxic-appearing and in no distress. He does have tenderness of his left abdomen on my exam. Will obtain a CT of the abdomen pelvis in addition to blood work and urinalysis. Patient was signed out to the oncoming physician pending final workup and disposition. Shared decision making: As above Code status: N/A Assessment/Plan Abdominal pain (R10.9: Unspecified abdominal pain) Orders: morphine, 2 mg = 1 mL, Injection, IV Push, Once, Stop date 04/30/24 5:20:00 EDT, STAT, Start date 04/30/24 5:20:00 EDT, 04/30/24 5:20:00 EDT ondansetron, 4 mg = 2 mL, Injection, IV Push, Once, Stop date 04/30/24 5:20:00 EDT, STAT, Start date 04/30/24 5:20:00 EDT, 04/30/24 5:20:00 EDT Basic Metabolic Panel CBC w/ Auto Diff CT Abdomen/Pelvis w/ Contrast eGFR Hepatic Function Panel Lipase Level Saline Lock Insert UA with Cult Rflx Medications Administered Given morphine 2 mg/mL Inj, 2 mg, IV Push ondansetron 4 mg/2 mL Inj, 4 mg, IV Push Disposition Plan Discharge Prescription List Prescriptions No active prescription medications Follow-up No qualifying data available Problem List/Past Medical History Ongoing No qualifying data Historical Hypertension Procedure/Surgical History Appendectomy (06/27/2020), BILATERAL ROBOT ASSISTED LAPROSCOPIC INGUINAL HERNIA REPAIR WITH MESH (09/06/2018), Arthroscopy of knee (04/2017), excision of bone chip rt index finger. Medications Inpatient morphine 2 mg/mL Inj, 2 mg= 1 mL, IV Push, Once ondansetron 4 mg/2 mL Inj, 4 mg= 2 mL, IV Push, Once Home amLODIPine 2.5 mg Tab aspirin, 81 mg, Oral, Daily atorvastatin 10 mg Tab, 5 mg, Oral, Daily biotin 1000 mcg oral tablet, 1000 mcg= 1 tab(s), Oral, Daily carvedilol 12.5 mg Tab, 12.5 mg= 1 tab(s), Oral, BID Centrum oral tablet, 1 tab(s), Oral, Daily cholecalciferol 1000 intl units oral capsule, 1000 International_Unit= 1 cap(s), Oral, Daily Colace 100 mg Cap, 100 mg= 1 cap(s), Oral, BID, PRN, Not taking Curcumin, 1 capsule, Oral, Daily Echinacea, 400 mg, Oral, Daily hydrochlorothiazide 12.5 mg Tab, 12.5 mg= 1 tab(s), Oral, Daily lisinopril, 40 mg, Oral, Daily MiraLax oral powder for reconstitution, 17 gm, Oral, Daily potassium chloride 20 mEq ER Tab, 20 mEq= 1 tab(s), Oral, Daily Vitamin B12 500 mcg oral tablet, 500 mcg= 1 tab(s), Oral, Daily Zinc, 50 mg, Oral, Daily Allergies penicillin (Rash) Social History Alcohol - Denies Alcohol Use, 08/25/2018 Substance Abuse - Denies Substance Abuse, 08/25/2018 Tobacco - Denies Tobacco Use, 08/25/2018 Never (less than 100 in lifetime) Tobacco Use:., 08/30/2020 Never (less than 100 in lifetime) Tobacco Use:., 08/09/2020 Never (less than 100 in lifetime) Tobacco Use:., 08/02/2020 Never (less than 100 in lifetime) Tobacco Use:., 07/26/2020 Never (less than 100 in lifetime) Tobacco Use:., 07/19/2020 Never (less than 100 in lifetime) Tobacco Use:., 07/12/2020 Lab Results WBC: 12.7 E9/L High (04/30/24 05:30:00) RBC: 4.8 E12/L (04/30/24 05:30:00) HGB: 14.8 gm/dL (04/30/24 05:30:00) Hct: 42.2 % (04/30/24 05:30:00) MCV: 88.9 fL (04/30/24 05:30:00) MCH: 31.2 pg (more content not included)... Normal [facility] Comment on above: Result Comment: Elec tronically Signed By: Georgina Hassan M.D.\.br\Date and Time Signed: 04/30/24 09:22 EDT ED Note-Physician ED Note-Physician Basic Information Time Seen: Ti Schulz DO 04/30/2024 05:09 Chief Complaint (L) sided ABD pain without radiation since 0200. Nausea. Denies urinary complaints. History of Present Illness HPI: Patient is a 73-year-old male with past medical history of hypertension who presents the ED for left-sided abdominal pain. Patient states that it woke him up out of sleep at approximately 0 200 tonight and has been constant since that time. The pain does not radiate. Nothing seems to make it better or worse. He initially had some nausea which is since resolved. He denies any vomiting or diarrhea. He denies any dysuria, frequency, or urgency. He denies any fever or chills. He has never had anything like this in the past. ROS: Pertinent review of systems conducted and is negative except as noted above. Physical exam: General: nontoxic appearing and in no distress HEENT: Mucous membranes moist Neuro: awake and alert Neck: supple, trachea midline Card: Heart regular rate and rhythm no murmur Resp: Lungs clear to auscultation no wheeze or rhonchi Abd: Soft and nondistended. Tenderness focally of the left mid abdomen. No rebound or guarding. No CVA tenderness. Ext: No gross deformity or edema Physical Exam Vitals & Measurements T: 36.6 ???C(Oral) HR: 54(Peripheral) RR: 16 BP: 196/105 SpO2: 99% HT: 187.9 cm WT: 85.5 kg BMI: 24.22 Medical Decision Making MEDICAL DECISION MAKING Number and Complexity of Problems Differential Diagnosis: [] [facility] Data External documents reviewed: N/A My EKG interpretation: Noted in chart if applicable My CT interpretation: N/A My X-ray interpretation: Noted in chart if applicable My Ultrasound interpretation: N/A Decision rules/scores evaluated: N/A Discussed with: N/A Treatment and Disposition ED Course: Patient is nontoxic-appearing and in no distress. He does have tenderness of his left abdomen on my exam. Will obtain a CT of the abdomen pelvis in addition to blood work and urinalysis. Patient was signed out to the oncoming physician pending final workup and disposition. Shared decision making: As above Code status: N/A Assessment/Plan Abdominal pain (R10.9: Unspecified abdominal pain) Orders: morphine, 2 mg = 1 mL, Injection, IV Push, Once, Stop date 04/30/24 5:20:00 EDT, STAT, Start date 04/30/24 5:20:00 EDT, 04/30/24 5:20:00 EDT ondansetron, 4 mg = 2 mL, Injection, IV Push, Once, Stop date 04/30/24 5:20:00 EDT, STAT, Start date 04/30/24 5:20:00 EDT, 04/30/24 5:20:00 EDT Basic Metabolic Panel CBC w/ Auto Diff CT Abdomen/Pelvis w/ Contrast eGFR Hepatic Function Panel Lipase Level Saline Lock Insert UA with Cult Rflx Medications Administered Given morphine 2 mg/mL Inj, 2 mg, IV Push ondansetron 4 mg/2 mL Inj, 4 mg, IV Push Disposition Plan Discharge Prescription List Prescriptions No active prescription medications Follow-up No qualifying data available Problem List/Past Medical History Ongoing No qualifying data Historical Hypertension Procedure/Surgical History Appendectomy (06/27/2020), BILATERAL ROBOT ASSISTED LAPROSCOPIC INGUINAL HERNIA REPAIR WITH MESH (09/06/2018), Arthroscopy of knee (04/2017), excision of bone chip rt index finger. Medications Inpatient morphine 2 mg/mL Inj, 2 mg= 1 mL, IV Push, Once ondansetron 4 mg/2 mL Inj, 4 mg= 2 mL, IV Push, Once Home amLODIPine 2.5 mg Tab aspirin, 81 mg, Oral, Daily atorvastatin 10 mg Tab, 5 mg, Oral, Daily biotin 1000 mcg oral tablet, 1000 mcg= 1 tab(s), Oral, Daily carvedilol 12.5 mg Tab, 12.5 mg= 1 tab(s), Oral, BID Centrum oral tablet, 1 tab(s), Oral, Daily cholecalciferol 1000 intl units oral capsule, 1000 International_Unit= 1 cap(s), Oral, Daily Colace 100 mg Cap, 100 mg= 1 cap(s), Oral, BID, PRN, Not taking Curcumin, 1 capsule, Oral, Daily Echinacea, 400 mg, Oral, Daily hydrochlorothiazide 12.5 mg Tab, 12.5 mg= 1 tab(s), Oral, Daily lisinopril, 40 mg, Oral, Daily MiraLax oral powder for reconstitution, 17 gm, Oral, Daily potassium chloride 20 mEq ER Tab, 20 mEq= 1 tab(s), Oral, Daily Vitamin B12 500 mcg oral tablet, 500 mcg= 1 tab(s), Oral, Daily Zinc, 50 mg, Oral, Daily Allergies penicillin (Rash) Social History Alcohol - Denies Alcohol Use, 08/25/2018 Substance Abuse - Denies Substance Abuse, 08/25/2018 Tobacco - Denies Tobacco Use, 08/25/2018 Never (less than 100 in lifetime) Tobacco Use:., 08/30/2020 Never (less than 100 in lifetime) Tobacco Use:., 08/09/2020 Never (less than 100 in lifetime) Tobacco Use:., 08/02/2020 Never (less than 100 in lifetime) Tobacco Use:., 07/26/2020 Never (less than 100 in lifetime) Tobacco Use:., 07/19/2020 Never (less than 100 in lifetime) Tobacco Use:., 07/12/2020 Lab Results WBC: 12.7 E9/L High (04/30/24 05:30:00) RBC: 4.8 E12/L (04/30/24 05:30:00) HGB: 14.8 gm/dL (04/30/24 05:30:00) Hct: 42.2 % (04/30/24 05:30:00) MCV: 88.9 fL (04/30/24 05:30:00) MCH: 31.2 pg (more content not included)... Normal [facility] Comment on above: Result Comment: Elec tronically Signed By: Ti Schulz DO\.br\Date and Time Signed: 04/30/24 06:36 EDT ED Patient Summaryon ED Patient Summary ED Patient Summary [place] [id number] Patient Discharge Instructions Person Information Name: AMISH OMALLEY Age: 73 Years Arrival Date: 04/30/2024 05:02:56 Discharge Diagnosis: 1:Left ureteral stone; 2:Left renal mass; Abdominal pain Primary Care Physician: VALERI SHAW DO Provider Information Primary Provider: Ti Schulz DO Advanced On Site Nurse:None The exam and treatment you received in the Emergency Department were for an urgent problem and are not intended as complete care. It is important that you follow up with a doctor, nurse practitioner, or physician???s carpenter's assistant for ongoing care. If your symptoms become worse or you do not improve as expected and you are unable to reach your usual health care provider, you should return to the Emergency Department. We are available 24 hours a day. AMISH OMALLEY has been given the following list of patient education materials, prescriptions and follow-up instructions: Follow-up Instructions: With: Address: When: Keshav Powell [address], [address], [facility] [address] [place] [address] Business (1) In 3 days 05/03/2024 Comments: The CAT scan of your abdomen and pelvis today showed a mass/tumor on the left kidney. Make sure to strain the urine as discussed and make sure to follow-up with Dr. Garcia for the kidney mass/tumor as well. Return to the emergency room if your pain recurs or any new symptoms. With: Address: When: VALERI Neal [facility], [address] [place] [address] Business (1) In 3 days In the event that this physician does not participate in your insurance network, please consult with your insurance company to find a nearby participating provider. Patient Education Materials: Kidney Stones A MESSAGE TO ALL PATIENTS REGARDING OPIOIDS PRESCRIPTION OPIOIDS: WHAT YOU NEED TO KNOW Prescription opioids can be used to help relieve cfvuiyfd-hx-xrynzz pain and are often prescribed following a surgery or injury, or for certain health conditions. These medications can be an important part of the treatment but also come with serious risks. It is important to work with your healthcare provider to make sure you are getting the safest, most effective care. WHAT ARE THE RISKS AND SIDE EFFECTS OF OPIOID USE? Prescription opioids carry serious risks of addiction and overdose, especially with prolonged use. An opioid overdose, often marked by slowed breathing, can cause sudden . The use of prescription opioids can have a number of side effects as well, even when taken as directed: ??? Tolerance???meaning you might need to take more of the medication for the same pain relief ??? Physical dependence???meaning you have symptoms of withdrawal when a medication is stopped ??? Increased sensitivity to pain ??? Constipation ??? Nausea, vomiting, and dry mouth ??? Sleepiness and dizziness ??? Confusion ??? Depression ??? Low levels of testosterone that can result in lower sex drive, energy, and strength ??? Itching and sweating RISKS ARE GREATER WITH: ??? History of drug misuse, substance use disorder, or overdose ??? Mental health conditions (such as depression or anxiety) ??? Sleep apnea ??? Older age (65 years and older) ??? Avoid alcohol while taking prescription opioids. Also, unless specifically advised by your health care provider, medications to avoid include: ??? Benzodiazepines (such as Xanax or Valium) ??? Muscle relaxants (such as Soma or Flexeril) ??? Hypnotics (such as Ambien or Lunesta) ??? Other prescription opioids KNOW YOUR OPTIONS Talk to your health care provider about ways to manage your pain that don???t involve prescription opioids. Some of these options may actually work better and have fewer risks and side effects. Options may include: ??? Pain relievers such as acetaminophen, ibuprofen, and naproxen ??? Some medication that are also used for depression or seizures ??? Physical therapy and exercise ??? Cognitive behavioral therapy, a psychological, goal-directed approach, in which patients learn how to modify physical, behavioral, and emotional triggers of pain and stress. IF YOU ARE PRESCRIBED OPIOIDS FOR PAIN: ??? Never take opioids in greater amounts or more often than prescribed. ??? Follow up with your primary health care provider. o Work together to create a plan on how to manage your pain. o Talk about ways to help manage your pain that don???t involve prescription opioids. o Talk about any and all concerns and side effects. ??? Help prevent misuse and abuse o Never sell or share prescription opioids. o Never use another person???s prescription opioids. ??? Store prescription opioids in a secure place and out of reach of others (this may include visitors, chi (more content not included)... Normal [facility] HEMATOLOGYOrdered By: SYSTEM SYSTEM on 04-30-2024 Basophils/100 WBC (Bld) 0.3 % Normal 0.0 - 2.0 % Remisol Heme Basophils/Leukocytes Auto (Bld) [Pure # fraction] 0.0 E9/L Normal 0.0 - 0.2 E9/L Remisol Heme Eosinophils (Bld) [#/Vol] 0.4 E9/L Normal 0.0 - 0.5 E9/L Remisol Heme Eosinophils/100 WBC (Bld) 3.4 % Normal 0.0 - 8.0 % Remisol Heme Erythrocyte distribution width (RBC) [Ratio] 13.4 % Normal 10.9 - 14.2 % Remisol Heme Hematocrit (Bld) [Volume fraction] 42.2 % Normal 37.7 - 49.0 % Remisol Heme Hemoglobin (Bld) [Mass/Vol] 14.8 g/dL Normal 13.5 - 17.5 gm/dL Remisol Heme Lymphocytes (Bld) [#/Vol] 0.7 E9/L Low 1.0 - 4.0 E9/L Remisol Heme Lymphocytes/100 WBC (Bld) 5.7 % Low 14.0 - 50.0 % Remisol Heme MCH (RBC) [Entitic mass] 31.2 pg Normal 27.0 - 34.0 pg Remisol Heme MCHC (RBC) [Mass/Vol] 35.1 g/dL Normal 31.4 - 36.0 gm/dL Remisol Heme MCV (RBC) [Entitic vol] 88.9 fL Normal 80.0 - 100.0 fL Remisol Heme Monocytes (Bld) [#/Vol] 0.8 E9/L Normal 0.2 - 1.0 E9/L Remisol Heme Monocytes/100 WBC (Bld) 6.1 % Normal 4.0 - 14.0 % Remisol Heme Neutrophils (Bld) [#/Vol] 10.8 E9/L High 2.0 - 7.5 E9/L Remisol Heme Neutrophils/100 WBC (Bld) 84.5 % High 36.0 - 75.0 % Remisol Heme Platelet 215.0 E9/L Normal 150.0 - 500.0 E9/L Remisol Heme Platelet mean volume (Bld) [Entitic vol] 8.2 fL Normal 6.4 - 10.8 fL Remisol Heme RBC (Bld) [#/Vol] 4.8 E12/L Normal 4.3 - 5.9 E12/L Remisol Heme WBC corrected for nucl RBC Auto (Bld) [#/Vol] 12.7 E9/L High 4.0 - 11.0 E9/L Remisol Heme Hep Func Panelon 04-30-2024 Albumin [Mass/Vol] 4.7 g/dL Normal 3.3-5.0 [facility] Comment on above: Performed By: #### 2 [id number] #### [facility] [address] [place] [address] Albumin/Globulin (S) [Mass conc ratio] 1.7 Normal 1.1-2.2 [facility] Comment on above: Performed By: #### 2 [id number] #### [facility] [address] [place] [address] ALP [Catalytic activity/Vol] 73 Int._Unit/L Normal 21-98 [facility] Comment on above: Performed By: #### 2 [id number] #### [facility] [address] [place] [address] ALT No additional P-5'-P [Catalytic activity/Vol] 13 Int._Unit/L Normal 6-46 [facility] Comment on above: Performed By: #### 2 [id number] #### [facility] [address] [place] [address] AST [Catalytic activity/Vol] 15 Int._Unit/L Normal 5-43 [facility] Comment on above: Performed By: #### 2 [id number] #### [facility] [address] [place] [address] Bilirubin [Mass/Vol] 0.8 mg/dL Normal 0.0-1.1 [facility] Comment on above: Performed By: #### 2 [id number] #### [facility] [address] [place] [address] Bilirubin.direct [Mass/Vol] 0.2 mg/dL Normal 0.0-0.4 [facility] Comment on above: Performed By: #### 2 [id number] #### [facility] [address] [place] [address] Bilirubin.indirect [Mass or moles/Vol] 0.6 mg/dL Normal 0.1-0.9 [facility] Comment on above: Performed By: #### 2 [id number] #### [facility] [address] [place] [address] Globulin (S) [Mass/Vol] 2.7 g/dL Normal 1.4-4.0 [facility] Comment on above: Performed By: #### 2 [id number] #### [facility] [address] [place] [address] Protein [Mass/Vol] 7.4 g/dL Normal 6.0-7.8 [facility] Comment on above: Performed By: #### 2 [id number] #### [facility] [address] [place] [address] Lipase Levelon 04-30-2024 Lipase [Catalytic activity/Vol] 26 U/L Normal 13-58 [facility] Comment on above: Performed By: #### 2 [id number] #### [facility] [address] [place] [address] UA with Cult Rflxon 04-30-20 Bilirubin Ql (U) Negative Normal Negative [facility] Comment on above: Performed By: #### 4 [id number] ####[facility] [address] [place] [address] Clarity (U) Clear Normal Clear [facility] Comment on above: Performed By: #### 4 [id number] ####[facility] [address] [place] [address] Color (U) Light-Yellow Normal Yellow [facility] Comment on above: Result Comment: Micr oscopic readings are only performed on those samples that meet specific criteria set forth by [facility]. Performed By: #### 4 [id number] ####[facility] [address] [place] [address] Epithelial cells.squamous Auto (Urine sed) [#/Area] 0-2 Invalid Interpretation Code [facility] Comment on above: Performed By: #### 4 [id number] ####[facility] [address] [place] [address] Glucose Ql (U) Negative Normal Negative [facility] Comment on above: Performed By: #### 4 [id number] ####[facility] [address] [place] [address] Hemoglobin Auto test strip (U) [Mass/Vol] 3+ mg/dL Abnormal Negative [facility] Comment on above: Performed By: #### 4 [id number] ####[facility] [address] [place] [address] Ketones Auto test strip Ql (U) Trace Abnormal Negative [facility] Comment on above: Performed By: #### 4 [id number] ####[facility] [address] [place] [address] Leukocyte esterase Auto test strip Ql (U) Negative Normal Negative [facility] Comment on above: Performed By: #### 4 [id number] ####[address] [address] Mucus Auto Ql (U) Trace Normal Negative [facility] Comment on above: Performed By: #### 4 [id number] ####[address] [address] Nitrite Auto test strip Ql (U) Negative Normal Negative [facility] Comment on above: Performed By: #### 4 [id number] ####[address] [address] pH (U) 5.5 [pH] Invalid Interpretation Code 5.0-9.0 [facility] Comment on above: Performed By: #### 4 [id number] ####[address] [address] Protein Ql (U) Negative Normal Negative [facility] Comment on above: Performed By: #### 4 [id number] ####[place] [address] [place] [address] RBC Ql (U) >75 Abnormal 0-3 [facility] Comment on above: Performed By: #### 4 [id number] ####[place] [address] [place] [address] Specific gravity (U) [Rel density] 1.024 Invalid Interpretation Code 1.005-1.030 [facility] Comment on above: Performed By: #### 4 [id number] ####[address] [address] Urobilinogen (U) [Mass/Vol] Negative Normal Negative [facility] Comment on above: Performed By: #### 4 [id number] ####[facility] [address] [place] [address] WBC Auto (Urine sed) [#/Area] 0-5 Normal 0-5 [facility] Comment on above: Performed By: #### 4 [id number] ####[facility] [address] [place] [id number] Type of Urine collection method Clean Catch Normal [facility] Comment on above: Performed By: #### 4 [id number] ####[facility] [address] [place] [id number] URINALYSISOrdered By: SYSTEM SYSTEM on 04-30-2024 Bilirubin Ql (U) Negative Normal Negativemg/ d L FT UA Auto SS Clarity (U) Clear (04/30/24 8:27 AM) Normal Clear [facility] UA Auto SS Color (U) Light-Yellow 1 (04/30/24 8:27 AM) Normal Yellow [facility] UA Auto SS Comment on above: Interpretive Data: M icroscopic readings are only performed on those samples that meet specific criteria set forth by [facility]. Epithelial cells.squamous Auto (Urine sed) [#/Area] 0-2 graded/HPF Invalid Interpretation Code FT UA Auto SS Glucose Ql (U) Negative Normal Negativemg/d L [facility] UA Auto SS Hemoglobin Auto test strip (U) [Mass/Vol] 3+ mg/dL Invalid Interpretation Code Negativemg/d L [facility] UA Auto SS Ketones Auto test strip Ql (U) Trace mg/dL Invalid Interpretation Code Negativemg/d L [facility] UA Auto SS Leukocyte esterase Auto test strip Ql (U) Negative Normal NegativeLeu/ uL [facility] UA Auto SS Mucus Auto Ql (U) Trace graded/LPF Normal Negati vegrad ed/LPF [facility] UA Auto SS Nitrite Auto test strip Ql (U) Negative Normal Negativemg/d L [facility] UA Auto SS pH (U) 5.5 *NA* (04/30/24 8:27 AM) Invalid Interpretation Code 5.0 - 9.0 [facility] UA Auto SS Protein Ql (U) Negative Normal Negativemg/d L [facility] UA Auto SS RBC Ql (U) >75 graded/HPF Invalid Interpretation Code 0-3graded/HP F [facility] UA Auto SS Specific gravity (U) [Rel density] 1.024 *NA* (04/30/24 8:27 AM) Invalid Interpretation Code 1.005 - 1.030 [facility] UA Auto SS Urobilinogen (U) [Mass/Vol] Negative Normal Negativemg/d L [facility] UA Auto SS WBC Auto (Urine sed) [#/Area] 0-5 graded/HPF Normal 0-5graded/HP F [facility] UA Auto SS URINALYSISOrdered By: Ti dawkins on 04-30-2024 UA Spec Desc Clean Catch (04/30/24 8:27 AM) Normal [facility] UA Auto SS Work Phone: eGFRon 04-30-2024 eGFR 78 mL/min/1.73 m2 Normal >=59 [facility] Comment on above: Performed By: #### 1 [id number] #### [facility] [address] [place] [address] Vital Signs Date Time Vital Sign Value Performing Clinician Facility 06-07-2024 10:32-0500 Blood Pressure Location Adela Lue [facility] 06-07-2024 10:32-0500 Body temperature 98.6 [degF] Adela Lue [facility] 06-07-2024 10:32-0500 Diastolic blood pressure 79 mm[Hg] Adela Lue [facility] 06-07-2024 10:32-0500 Heart rate 51 /min Adela Lue [facility] 06-07-2024 10:32-0500 Respiratory rate 18 /min Adela Lue [facility] 06-07-2024 10:32-0500 Systolic blood pressure 120 mm[Hg] Adela Lue [facility] 06-06-2024 09:58-0500 Blood Pressure Location DULCE TRISTEN [facility] 06-06-2024 09:58-0500 Diastolic blood pressure 86 mm[Hg] DULEC TRISTEN [facility] 06-06-2024 09:58-0500 Heart rate 62 /min DULCE TRISTEN [facility] 06-06-2024 09:58-0500 Systolic blood pressure 136 mm[Hg] DULCE TRISTEN [facility] 04-30-2024 10:59-0400 Diastolic blood pressure 79 mm[Hg] Ti Zeus [facility] 04-30-2024 10:59-0400 Heart rate 75 /min Ti Zeus [facility] 04-30-2024 10:59-0400 Mean blood pressure 101 mm[Hg] Ti Zeus [facility] 04-30-2024 10:59-0400 SaO2% (BldA) [Mass fraction] 98 % Ti Zeus [facility] 04-30-2024 10:59-0400 Systolic blood pressure 145 mm[Hg] Ti Zeus [facility] 04-30-2024 10:30-0400 SaO2% (BldA) [Mass fraction] 95 % Ti Zeus [facility] 04-30-2024 10:00-0400 Diastolic blood pressure 81 mm[Hg] Ti Zeus [facility] 04-30-2024 10:00-0400 Heart rate 76 /min Ti Zeus [facility] 04-30-2024 10:00-0400 Mean blood pressure 104 mm[Hg] Ti Zeus [facility] 04-30-2024 10:00-0400 SaO2% (BldA) [Mass fraction] 97 % Ti Zeus [facility] 04-30-2024 10:00-0400 Systolic blood pressure 151 mm[Hg] Ti Zeus [facility] 04-30-2024 09:23-0400 Diastolic blood pressure 89 mm[Hg] Ti Zeus [facility] 04-30-2024 09:23-0400 Heart rate 59 /min Ti Zeus [facility] 04-30-2024 09:23-0400 Mean blood pressure 112 mm[Hg] Ti Zeus [facility] 04-30-2024 09:23-0400 Respiratory rate 18 /min Ti Zeus [facility] 04-30-2024 09:23-0400 Systolic blood pressure 158 mm[Hg] Ti Zeus [facility] 04-30-2024 08:24-0400 Respiratory rate 16 /min Ti Zeus [facility] 04-30-2024 07:30-0400 Respiratory rate 18 /min Ti Zeus [facility] 04-30-2024 05:50-0400 Blood Pressure Location Ti Zeus [facility] 04-30-2024 05:08-0400 Body temperature 97.88 [degF] Ti Schulz [facility] 04-30-2024 05:08-0400 Heart rate 54 /min Ti Schulz [facility] Encounters Encounter Date Encounter Type Care Provider Facility Start: 06-14-2024 ambulatory Adela Angeles Facility:C D:[id number] Start: 06-07-2024 ambulatory Adela NobleRosalinda Karthik Facility:[facility] [place] Start: 06-07-2024 End: 06-07-2024 Patient encounter procedure Adela NobleRosalinda Karthik [facility] [place] Start: 06-06-2024 End: 06-06-2024 ambulatory PA-C DULCE RAMON Facility:[facility] Start: 06-06-2024 End: 06-06-2024 Patient encounter procedure DULCE RAMON [facility] Start: 06-06-2024 ambulatory PA-C DULCE RAMON F acility:[facility] [place] Start: 06-06-2024 End: 06-06-2024 ambulatory PA-C DULCE RAMON Facility:[facility] [place] Start: 06-06-2024 End: 06-06-2024 Patient encounter procedure DULCE RAMON [facility] [place] Start: 05-24-2024 End: 05-24-2024 ambulatory Keshav GARCIA Facility:[facility] [place] Start: 05-24-2024 End: 05-24-2024 Patient encounter procedure Keshav GARCIA [facility] [place] Start: 05-22-2024 End: 05-22-2024 ambulatory Keshav GARCIA Facility:[facility] Start: 05-22-2024 End: 05-22-2024 Patient encounter procedure Keshav GARCIA [facility] Start: 05-02-2024 ambulatory Keshav GARCIA Facility:[facility] Start: 04-30-2024 End: 04-30-2024 Emergency department patient visit DO Ti Schulz Facility:[facility] Procedures Date Procedure Procedure Detail Performing Clinician Start: 06-27-2020 Appendectomy Ti Gregg [place] Start: 09-06-2018 BILATERAL ROBOT ASSI STED LAPROSCOPIC INGUINAL HERNIA REPAIR WITH MESH Tiisaiah Schulz Start: 04-04-2017 Arthroscopy of knee Yi paddy Schulz Comment on above: right excision of bone chi p rt index finger Ti Zeus Immunizations Immunization Date Immunization Notes Care Provider [facility] 03-31-2024 influenza virus vaccine, unspecified formulation Adela Lue [facility] 03-28-2023 influenza virus vaccine, unspecified formulation Adela Lue [facility] 03-30-2022 influenza virus vaccine, unspecified formulation Adela Lue [facility] 03-30-2022 SARS-CoV-2 (COVID-19 ) [id number] Adela Lue [facility] 05-07-2021 SARS-CoV-2 (COVID-19 ) mRNA BNT-[id number] vax Adela Lue [facility] 03-31-2021 influenza virus vaccine, unspecified formulation Adela Lue [facility] 10-01-2020 SARS-CoV-2 (COVID-19 ) Ad26 vaccine, recombinant Adela Lue [facility] 02-28-2020 influenza virus vaccine, unspecified formulation Adela Lue [facility] 04-11-2019 influenza virus vaccine, unspecified formulation Adela Lue [facility] 04-16-2018 influenza virus vaccine, unspecified formulation Adela Lue [facility] 03-26-2014 influenza virus vaccine, unspecified formulation Adela Lue [facility] Payers Date Payer Category Payer Medicare [id number] 2024 Unknown [id number] 1950 Unknown [id number] 2.16.8 [id number] 1950 Unknown [id number] 2.16.8 [id number] 1949 Unknown [id number] 2.16.8 [id number] 1949 Unknown [id number] 2.16.8 [id number] 1949 Unknown [id number] 2.16.8 [id number] 1949 Unknown [id number] 2.16.8 [id number] 1949 Unknown [id number] 2.16.8 [id number] 1949 Unknown [id number] 2.16.8 [id number] 1949 Unknown [id number] 2.16.8 [id number] 1950 Unknown [id number] 2.16.8 [id number] Social History Date Type Detail Facility Start: 08-30-2020 End: 06-07-2024 Tobacco smoking status Never smoked tobacco (finding) [facility] Sex Assigned At Male [facility] Tobacco smoking status Never [facility] Functional Status Date Assessment Result Facility 06-07-2024 Functional Status N/A [facility] 06-06-2024 Functional Status N/A [facility] 04-30-2024 Functional Status N/A [facility] Clinical Notes 04-30-2024 to 06-07-2024 Note Date & Type Note Facility 06-07-2024 Hospital Discharg e instructions Patient Education 06/07/2024 11:30:46 Laser Therapy for Kidney Stones Laser Therapy for Kidney Stones Laser therapy for kidney stones is a procedure to break up rock-like masses that form inside the kidneys (kidney stones). It is done using a device that beams a strong light (laser) on the kidney stones. This breaks the stones up into small pieces. These small pieces may leave your body when you pee (urinate) or may be taken out during the procedure. You may need laser therapy if you have kidney stones that are painful or that are stopping you from being able to pee. Tell a health care provider about: Any allergies you have. All medicines you are taking, including vitamins, herbs, eye drops, creams, and pvrj-nxo-leqgsyg medicines. Any problems you or family members have had with anesthesia. Any bleeding problems you have. Any surgeries you have had. Any medical conditions you have. Whether you are or may be . What are the risks? Your health care provider will talk with you about risks. These may include: Infection. Bleeding. Allergic reactions to medicines. Damage to: ?The part of your body that drains pee (urine) from the bladder (urethra). ?The bladder. ?The tube that connects the bladder to the kidneys (ureter). Urinary tract infection (UTI). Urethral stricture. This is when the urethra is narrowed by scarring. Trouble peeing. Blockage of the kidney. This may be caused by a piece of kidney stone. What happens before the procedure? When to stop eating and drinking Follow instructions from your provider about what you may eat and drink. These may include: 8 hours before the procedure ?Stop eating most foods. Do not eat meat, fried foods, or fatty foods. ?Eat only light foods, such as toast or crackers. ?All liquids are okay except energy drinks and alcohol. 6 hours before the procedure ?Stop eating. ?Drink only clear liquids, such as water, clear fruit juice, black coffee, plain tea, and sports drinks. ?Do not drink energy drinks or alcohol. 2 hours before the procedure ?Stop drinking all liquids. ?You may be allowed to take medicines with small sips of water. If you do not follow your provider's instructions, your procedure may be delayed or canceled. Medicines Ask your provider about: ?Changing or stopping your regular medicines. These include any diabetes medicines or blood thinners you take. ?Taking medicines such as aspirin and ibuprofen. These medicines can thin your blood. Do not take them unless your provider tells you to. ?Taking ezcr-ggn-flvkpve medicines, vitamins, herbs, and supplements. Tests You may have a physical exam before the procedure. You may also have tests done. These may include: ?Imaging tests. ?Blood or pee tests. Surgery safety Ask your provider: ?How your surgery site will be marked. ?What steps will be taken to help prevent infection. These steps may include: ?Removing hair at the surgery site. ?Washing skin with a soap that kills germs. ?Taking antibiotics. General instructions Do not use any products that contain nicotine or tobacco for at least 4 weeks before the procedure. These products include cigarettes, chewing tobacco, and vaping devices, such as e-cigarettes. If you need help quitting, ask your provider. If you will be going home right after the procedure, plan to have a responsible adult: ?Take you home from the hospital or clinic. You will not be allowed to drive. ?Care for you for the time you are told. What happens during the procedure? An IV will be inserted into one of your veins. You will be given: ?A sedative. This helps you relax. ?Anesthesia. This keeps you from feeling pain. It will make you fall asleep for surgery. A tool with a camera on the end (ureteroscope) will be put into your urethra. It will be moved through your bladder to your kidney. It will send pictures to a screen in the operating room. This will show what parts of your kidney need to be treated. A tube will be put through the ureteroscope. It will be moved into your kidney. The laser device will be put into your kidney through the tube. The laser will be used to break up the kidney stones. A tool with a tiny wire basket may be put through the tube into your kidney. This can help remove the small pieces of the kidney stone. A small mesh tube (stent) may be placed to allow your kidney to drain. The tube and ureteroscope will be taken out at the end of the surgery. The procedure may vary among providers and hospitals. What happens after the procedure? Your blood pressure, heart rate, breathing rate, and blood oxygen level will be monitored until you leave the hospital or clinic. If you had a stent placed, it may have a string that will be secured to your skin. This helps your provider remove the stent. You may be given a strainer to collect any stone pieces that you pass in your pee. Your provider may have these tested. This information is not intended to replace advice given to you by your health care provider. Make sure you discuss any questions you have with your health care provider. Document Revised: 02/19/2023 Document Reviewed: 02/19/2023 [employer] Patient Education 2023 [employer]. Follow Up Care 06/06/2024 11:12:56 With:Karthik WILLSON, VIRGILIO Kaur, URO Address: When: Unknown Comments:Schedule Laser Lithotripsy [facility] 06-07-2024 Note Patient Education Nephrology Laser Therapy for Kidney Stones Laser therapy for kidney stones is a procedure to break up rock-like masses that form inside the kidneys (kidney stones). It is done using a device that beams a strong light (laser) on the kidney stones. This breaks the stones up into small pieces. These small pieces may leave your body when you pee (urinate) or may be taken out during the procedure. You may need laser therapy if you have kidney stones that are painful or that are stopping you from being able to pee. Tell a health care provider about: ??? Any allergies you have. ??? All medicines you are taking, including vitamins, herbs, eye drops, creams, and vnyg-dgz-fpluwdn medicines. ??? Any problems you or family members have had with anesthesia. ??? Any bleeding problems you have. ??? Any surgeries you have had. ??? Any medical conditions you have. ??? Whether you are or may be . What are the risks? Your health care provider will talk with you about risks. These may include: ??? Infection. ??? Bleeding. ??? Allergic reactions to medicines. ??? Damage to: ? The part of your body that drains pee (urine) from the bladder (urethra). ? The bladder. ? The tube that connects the bladder to the kidneys (ureter). ??? Urinary tract infection (UTI). ??? Urethral stricture. This is when the urethra is narrowed by scarring. ??? Trouble peeing. ??? Blockage of the kidney. This may be caused by a piece of kidney stone. What happens before the procedure? When to stop eating and drinking Follow instructions from your provider about what you may eat and drink. These may include: ??? 8 hours before the procedure ? Stop eating most foods. Do not eat meat, fried foods, or fatty foods. ? Eat only light foods, such as toast or crackers. ? All liquids are okay except energy drinks and alcohol. ??? 6 hours before the procedure ? Stop eating. ? Drink only clear liquids, such as water, clear fruit juice, black coffee, plain tea, and sports drinks. ? Do not drink energy drinks or alcohol. ??? 2 hours before the procedure ? Stop drinking all liquids. ? You may be allowed to take medicines with small sips of water. ??? If you do not follow your provider's instructions, your procedure may be delayed or canceled. Medicines ??? Ask your provider about: ? Changing or stopping your regular medicines. These include any diabetes medicines or blood thinners you take. ? Taking medicines such as aspirin and ibuprofen. These medicines can thin your blood. Do not take them unless your provider tells you to. ? Taking pghu-xdy-jzoqbdp medicines, vitamins, herbs, and supplements. Tests ??? You may have a physical exam before the procedure. You may also have tests done. These may include: ? Imaging tests. ? Blood or pee tests. Surgery safety ??? Ask your provider: ? How your surgery site will be marked. ? What steps will be taken to help prevent infection. These steps may include: ? Removing hair at the surgery site. ? Washing skin with a soap that kills germs. ? Taking antibiotics. General instructions ??? Do not use any products that contain nicotine or tobacco for at least 4 weeks before the procedure. These products include cigarettes, chewing tobacco, and vaping devices, such as e-cigarettes. If you need help quitting, ask your provider. ??? If you will be going home right after the procedure, plan to have a responsible adult: ? Take you home from the hospital or clinic. You will not be allowed to drive. ? Care for you for the time you are told. What happens during the procedure? An IV will be inserted into one of your veins. ??? You will be given: ? A sedative. This helps you relax. ? Anesthesia. This keeps you from feeling pain. It will make you fall asleep for surgery. ??? A tool with a camera on the end (ureteroscope) will be put into your urethra. It will be moved through your bladder to your kidney. It will send pictures to a screen in the operating room. This will show what parts of your kidney need to be treated. ??? A tube will be put through the ureteroscope. It will be moved into your kidney. ??? The laser device will be put into your kidney through the tube. The laser will be used to break up the kidney stones. ??? A tool with a tiny wire basket may be put through the tube into your kidney. This can help remove the small pieces of the kidney stone. ??? A small mesh tube (stent) may be placed to allow your kidney to drain. ??? The tube and ureteroscope will be taken out at the end of the surgery. The procedure may vary among providers and hospitals. What happens after the procedure? Your blood pressure, heart rate, breathing rate, and blood oxygen level will be monitored until you leave the hospital or clinic. ??? If you had a stent placed, it may have a string that will be secured to your skin. This helps yo (more content not included)... [facility] 06-06-2024 Hospital Discharg e instructions Patient Education 06/06/2024 10:29:48 Kidney Stones, Bhgp-gy-Ouik Kidney Stones Kidney stones are rock-like masses that form inside of the kidneys. Kidneys are organs that make pee (urine). A kidney stone may move into other parts of the urinary tract, including: The tubes that connect the kidneys to the bladder (ureters). The bladder. The tube that carries urine out of the body (urethra). Kidney stones can cause very bad pain and can block the flow of pee. The stone usually leaves your body through your pee. A doctor may need to take out the stone. What are the causes? Kidney stones may be caused by: Too much calcium in the body. This may be caused by too much parathyroid hormone in the blood. Uric acid crystals in the bladder. The body makes uric acid when you eat certain foods. Narrowing of one or both of the ureters. A kidney blockage that you were born with. Past surgery on the kidney or the ureters. What increases the risk? You are more likely to develop this condition if: You have had a kidney stone in the past. Other people in your family have had kidney stones. You do not drink enough water. You eat a diet that is high in protein, salt (sodium), or sugar. You are very overweight (obese). What are the signs or symptoms? Symptoms of a kidney stone may include: Pain in the side of the belly, right below the ribs. Pain usually spreads to the groin. Needing to pee often or right away. Pain when peeing. Blood in your pee. Feeling like you may vomit (nauseous). Vomiting. Fever and chills. How is this treated? Treatment depends on the size, location, and makeup of the kidney stones. The stones will often pass out of the body when you pee. You may need to: Drink more fluid to help pass the stone. ?In some cases, you may be given fluids through an IV tube at the hospital. Take medicine for pain. Change your diet to help keep kidney stones from coming back. Sometimes, you may need: A procedure to break up kidney stones using a beam of light (laser) or shock waves. Surgery to remove the kidney stones. Follow these instructions at home: Medicines Take djnl-owh-ohoopjf and prescription medicines only as told by your doctor. Ask your doctor if the medicine prescribed to you requires you to avoid driving or using machinery. Eating and drinking Drink enough fluid to keep your pee pale yellow. ?You may be told to drink at least 8 10 glasses of water each day. This will help you pass the stone. If told by your doctor, change your diet. You may be told to: ?Limit how much salt you eat. ?Eat more fruits and vegetables. ?Limit how much meat, poultry, fish, and eggs you eat. Follow instructions from your doctor about what you may eat and drink. General instructions Collect pee samples as told by your doctor. You may need to collect a pee sample: ?24 hours after a stone comes out. ?8 12 weeks after a stone comes out, and every 6 12 months after that. Strain your pee every time you pee. Use the strainer that your doctor recommends. Do not throw out the stone. Keep it so that it can be tested by your doctor. Keep all follow-up visits. You may need X-rays and ultrasounds to make sure the stone has come out. How is this prevented? To prevent another kidney stone: Drink enough fluid to keep your pee pale yellow. This is the best way to prevent kidney stones. Eat healthy foods. Avoid certain foods as told by your doctor. You may be told to eat less protein. Stay at a healthy weight. Where to find more information National Kidney Foundation (NKF): kidney.org Urology Care Foundation (UCF): urologyhealth.org Contact a doctor if: You have pain that gets worse or does not get better with medicine. Get help right away if: You have a fever or chills. You get very bad pain. You get new pain in your belly. You faint. You cannot pee. This information is not intended to replace advice given to you by your health care provider. Make sure you discuss any questions you have with your health care provider. Document Revised: 02/12/2023 Document Reviewed: 02/12/2023 [employer] Patient Education 2023 [employer]. Follow Up Care 05/24/2024 09:55:00 With:Karthik WILLSON, VIRGILIO Kaur, URO Address: When: Unknown [facility] [place] 06-06-2024 Note Patient Education Urology Kidney Stones Kidney stones are rock-like masses that form inside of the kidneys. Kidneys are organs that make pee (urine). A kidney stone may move into other parts of the urinary tract, including: ??? The tubes that connect the kidneys to the bladder (ureters). ??? The bladder. ??? The tube that carries urine out of the body (urethra). Kidney stones can cause very bad pain and can block the flow of pee. The stone usually leaves your body through your pee. A doctor may need to take out the stone. What are the causes? Kidney stones may be caused by: ??? Too much calcium in the body. This may be caused by too much parathyroid hormone in the blood. ??? Uric acid crystals in the bladder. The body makes uric acid when you eat certain foods. ??? Narrowing of one or both of the ureters. ??? A kidney blockage that you were born with. ??? Past surgery on the kidney or the ureters. What increases the risk? You are more likely to develop this condition if: ??? You have had a kidney stone in the past. ??? Other people in your family have had kidney stones. ??? You do not drink enough water. ??? You eat a diet that is high in protein, salt (sodium), or sugar. ??? You are very overweight (obese). What are the signs or symptoms? Symptoms of a kidney stone may include: ??? Pain in the side of the belly, right below the ribs. Pain usually spreads to the groin. ??? Needing to pee often or right away. ??? Pain when peeing. ??? Blood in your pee. ??? Feeling like you may vomit (nauseous). ??? Vomiting. ??? Fever and chills. How is this treated? Treatment depends on the size, location, and makeup of the kidney stones. The stones will often pass out of the body when you pee. You may need to: ??? Drink more fluid to help pass the stone. ? In some cases, you may be given fluids through an IV tube at the hospital. ??? Take medicine for pain. ??? Change your diet to help keep kidney stones from coming back. Sometimes, you may need: ??? A procedure to break up kidney stones using a beam of light (laser) or shock waves. ??? Surgery to remove the kidney stones. Follow these instructions at home: Medicines ??? Take vajm-uny-rovtzzc and prescription medicines only as told by your doctor. ??? Ask your doctor if the medicine prescribed to you requires you to avoid driving or using machinery. Eating and drinking ??? Drink enough fluid to keep your pee pale yellow. ? You may be told to drink at least 8?10 glasses of water each day. This will help you pass the stone. ??? If told by your doctor, change your diet. You may be told to: ? Limit how much salt you eat. ? Eat more fruits and vegetables. ? Limit how much meat, poultry, fish, and eggs you eat. ??? Follow instructions from your doctor about what you may eat and drink. General instructions ??? Collect pee samples as told by your doctor. You may need to collect a pee sample: ? 24 hours after a stone comes out. ? 8?12 weeks after a stone comes out, and every 6?12 months after that. ??? Strain your pee every time you pee. Use the strainer that your doctor recommends. ??? Do not throw out the stone. Keep it so that it can be tested by your doctor. ??? Keep all follow-up visits. You may need X-rays and ultrasounds to make sure the stone has come out. How is this prevented? To prevent another kidney stone: ??? Drink enough fluid to keep your pee pale yellow. This is the best way to prevent kidney stones. ??? Eat healthy foods. ??? Avoid certain foods as told by your doctor. You may be told to eat less protein. ??? Stay at a healthy weight. Where to find more information ??? National Kidney Foundation (NKF): kidney.org ??? Urology Care Foundation (UCF): urologyhealth.org Contact a doctor if: ??? You have pain that gets worse or does not get better with medicine. Get help right away if: ??? You have a fever or chills. ??? You get very bad pain. ??? You get new pain in your belly. ??? You faint. ??? You cannot pee. This information is not intended to replace advice given to you by your health care provider. Make sure you discuss any questions you have with your health care provider. Document Revised: 02/12/2023 Document Reviewed: 02/12/2023 Elsevier Patient Education ? 2023 [employer]. [facility] 05-02-2024 Hospital Discharg e instructions Follow Up Care 05/02/2024 13:06:00 With:RADHA WILLSON, Keshav Garcia, URL Address: [facility] [employer] [address] [place], [place] [id number]- When: Unknown [facility] 04-30-2024 Evaluation + Plan note Extrac tyrel from: Title:ED Note Author:Ti Schulz DO Date :04/30/24 Abdominal pain (R10.9: Unspe cified abdominal pain) Orders: morphine, 2 mg = 1 mL, Injection, IV Push, Once, Stop date 04/30/24 5:20:00 EDT, STAT, Start date 04/30/24 5:20:00 EDT, 04/30/24 5:20:00 EDT ondansetron, 4 mg = 2 mL, Injection, IV Push, Once, Stop date 04/30/24 5:20:00 EDT, STAT, Start date 04/30/24 5:20:00 EDT, 04/30/24 5:20:00 EDT Basic Metabolic Panel CBC w/ Auto Diff CT Abdomen/Pelvis w/ Contrast eGFR Hepatic Function Panel Lipase Level Saline Lock Insert UA with Cult Rflx Addendum by Sonya Martinez, As trianabelle H on April 30, 2024 09:20:15 EDT The care of the patient was transitioned to tx upon shift change to follow-up with CT result reevaluation and final disposition. The patient was seen and evaluated by me. He is abdomen is soft with tenderness in the left hypochondria. The CT of the abdomen and pelvis shows mild left-sided hydronephrosis and hydroureter noted at the level of an obstructing distal left ureteral stone just proximal to the UV junction measuring 5 x 5 mm. No additional stones are noted on the left. Right-sided nonobstructing renal calyceal stones are noted. 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 The patient was given Toradol and his pain completely resolved. The urine shows some microscopic hematuria otherwise unremarkable. The patient was pain-free. The case was discussed with who agreed to discharge patient home and follow-up with Dr. Garcia in the office. The patient was instructed to definitely follow-up with Dr. Garcia especially for the renal tumor. He is instructed to return to the emergency room if his pain recurs or any new symptoms. The patient will be discharged with urinary strainer. Additional diagnosis: Left ureteral stone, Left renal mass [facility] 10-27-2024 Hospital Discharge instructions Patient Education 04/30/2024 11:06:42 Kidney Stones Kidney Stones Kidney stones are solid, rock-like deposits that form inside of the kidneys. The kidneys are a pairof organs that make urine. A kidney stone may form in a kidney and move into other parts of the urinary tract, including the tubes that connect the kidneys to the bladder (ureters), the bladder, and the tube that carries urine out of the body (urethra). As the stone moves through these areas, it can cause intense pain and block the flow of urine. Kidney stones are created when high levels of certain minerals are found in the urine. The stones are usually passed out of the body through urination, but in some cases, medical treatment may be needed to remove them. What are the causes? Kidney stones may be caused by: A condition in which certain glands produce too much parathyroid hormone (primary hyperparathyroidism), which causes too much calcium buildup in the blood. A buildup of uric acid crystals in the bladder (hyperuricosuria). Uric acid is a chemical that the body produces when you eat certain foods. It usually leaves the body in the urine. Narrowing (stricture) of one or both of the ureters. A kidney blockage that is present at (congenital obstruction). Past surgery on the kidney or the ureters. What increases the risk? The following factors may make you more likely to develop this condition: Having had a kidney stone in the past. Having a family history of kidney stones. Not drinking enough water. Eating a diet that is high in protein, salt (sodium), or sugar. Being overweight or obese. What are the signs or symptoms? Symptoms of a kidney stone may include: Pain in the side of the abdomen, right below the ribs (flank pain). Pain usually spreads (radiates)to the groin. Needing to urinate often or urgently. Painful urination. Blood in the urine (hematuria). Nausea. Vomiting. Fever and chills. How is this diagnosed? This condition may be diagnosed based on: Your symptoms and medical history. A physical exam. Blood tests. Urine tests. These may be done before and after the stone passes out of your body through urination. Imaging tests, such as a CT scan, abdominal X-ray, or ultrasound. A procedure to examine the inside of the bladder (cystoscopy). How is this treated? Treatment for kidney stones depends on the size, location, and makeup of the stones. Kidney stones will often pass out of the body through urination. You may need to: Increase your fluid intake to help pass the stone. In some cases, you may be given fluids through an IV and may need to be monitored in the hospital. Take medicine for pain. Make changes in your diet to help prevent kidney stones from coming back. Sometimes, procedures are needed to remove a kidney stone. This may involve: A procedure to break up kidney stones using: ?A focused beam of light (laser therapy). ?Shock waves (extracorporeal shock wave lithotripsy). Surgery to remove kidney stones. This may be needed if you have severe pain or have stones that block your urinary tract. Follow these instructions at home: Medicines Take [id number] and prescription medicines only as told by your health care provider. Ask your health care provider if the medicine prescribed to you requires you to avoid driving or using heavy machinery. Eating and drinking Drink enough fluid to keep your urine pale yellow. You may be instructed to drink at least 8 10 glasses of water each day. This will help you pass the kidney stone. If directed, change your diet. This may include: ?Limiting how much sodium you eat. ?Eating more fruits and vegetables. ?Limiting how much animal protein you eat. Animal proteins include red meat, poultry, fish, and eggs. ?Eating a normal amount of calcium (1,000 1,300 mg per day). Follow instructions from your health care provider about eating or drinking restrictions. General instructions Collect urine samples as told by your health care provider. You may need to collect a urine sample: ?24 hours after you pass the stone. ?8 12 weeks after you pass the kidney stone, and every 6 12 months after that. Strain your urine every time you urinate, for as long as directed. Use the strainer that your health care provider recommends. Do not throw out the kidney stone after passing it. Keep the stone so it can be tested by your health care provider. Testing the makeup of your kidney stone may help prevent you from getting kidney stones in the future. Keep all follow-up visits. You may need follow-up X-rays or ultrasounds to make sure that your stone has passed. How is this prevented? To prevent another kidney stone: Drink enough fluid to keep your urine pale yellow. This is the best way to prevent kidney stones. Eat a healthy diet. Follow recommendations from your health care provider about foods to avoid. Recommendations vary depending on the type of kidney stone that you have. You may be instructed to eat a low-protein diet. Maintain a healthy weight. Where to find more information National Kidney Foundation (NKF): www.kidney.org [facility] (UCF): www.urologyhealth.org Contact a health care provider if: You have pain that gets worse or does not get better with medicine. Get help right away if: You have a fever or chills. You develop severe pain. You develop new abdominal pain. You faint. You are unable to urinate. Summary Kidney stones are solid, rock-like deposits that form inside of the kidneys. Kidney stones can cause nausea, vomiting, blood in the urine, abdominal pain, and the urge to urinate often. Treatment for kidney stones depends on the size, location, and makeup of the stones. Kidney stones will often pass out of the body through urination. Kidney stones can be prevented by drinking enough fluids, eating a healthy diet, and maintaining a healthy weight. This information is not intended to replace advice given to you by your health care provider. Make sure you discuss any questions you have with your health care provider. Document Revised: 09/30/2022 Document Reviewed: 09/30/2022 [employer] Patient Education 2023 [employer]. Follow Up Care 04/30/2024 05:05:43 With:Keshav GARCIA Address: [address] [facility] [address] [place] [address]- Business (1) When:05/03/2024 09:18:45 Comments:The CAT scan of your abdomen and pelvis today showed a mass/tumor on the left kidney. Make sure to strain the urine as discussed and make sure to follow-up with Dr. Garcia for the kidney mass/tumor as well. Return to the emergency room if your pain recurs or any new symptoms. With:VALERI SHAW Address: [facility] [address] [place] [address]- Business (1) When:Within 3 Day(s) [facility] 10-27-2024 NoteED Patient Education Note Urology Kidney Stones Kidney stones are solid, rock-like deposits that form inside of the kidneys. The kidneys are a pairof organs that make urine. A kidney stone may form in a kidney and move into other parts of the urinary tract, including the tubes that connect the kidneys to the bladder (ureters), the bladder, and the tube that carries urine out of the body (urethra). As the stone moves through these areas, it can cause intense pain and block the flow of urine. Kidney stones are created when high levels of certain minerals are found in the urine. The stones are usually passed out of the body through urination, but in some cases, medical treatment may be needed to remove them. What are the causes? Kidney stones may be caused by: ??? A condition in which certain glands produce too much parathyroid hormone (primary hyperparathyroidism), which causes too much calcium buildup in the blood. ??? A buildup of uric acid crystals in the bladder (hyperuricosuria). Uric acid is a chemical that the body produces when you eat certain foods. It usually leaves the body in the urine. ??? Narrowing (stricture) of one or both of the ureters. ??? A kidney blockage that is present at (congenital obstruction). ??? Past surgery on the kidney or the ureters. What increases the risk? The following factors may make you more likely to develop this condition: ??? Having had a kidney stone in the past. ??? Having a family history of kidney stones. ??? Not drinking enough water. ??? Eating a diet that is high in protein, salt (sodium), or sugar. ??? Being overweight or obese. What are the signs or symptoms? Symptoms of a kidney stone may include: ??? Pain in the side of the abdomen, right below the ribs (flank pain). Pain usually spreads (radiates) to the groin. ??? Needing to urinate often or urgently. ??? Painful urination. ??? Blood in the urine (hematuria). ??? Nausea. ??? Vomiting. ??? Fever and chills. How is this diagnosed? This condition may be diagnosed based on: ??? Your symptoms and medical history. ??? A physical exam. ??? Blood tests. ??? Urine tests. These may be done before and after the stone passes out of your body through urination. ??? Imaging tests, such as a CT scan, abdominal X-ray, or ultrasound. ??? A procedure to examine the inside of the bladder (cystoscopy). How is this treated? Treatment for kidney stones depends on the size, location, and makeup of the stones. Kidney stones will often pass out of the body through urination. You may need to: ??? Increase your fluid intake to help pass the stone. In some cases, you may be given fluids through an IV and may need to be monitored in the hospital. ??? Take medicine for pain. ??? Make changes in your diet to help prevent kidney stones from coming back. Sometimes, procedures are needed to remove a kidney stone. This may involve: ??? A procedure to break up kidney stones using: ? A focused beam of light (laser therapy). ? Shock waves (extracorporeal shock wave lithotripsy). ??? Surgery to remove kidney stones. This may be needed if you have severe pain or have stones thatblock your urinary tract. Follow these instructions at home: Medicines ??? Take idhm-mpr-[id number] and prescription medicines only as told by your health care provider. ??? Ask your health care provider if the medicine prescribed to you requires you to avoid driving or using heavy machinery. Eating and drinking ??? Drink enough fluid to keep your urine pale yellow. You may be instructed to drink at least 8?10glasses of water each day. This will help you pass the kidney stone. ??? If directed, change your diet. This may include: ? Limiting how much sodium you eat. ? Eating more fruits and vegetables. ? Limiting how much animal protein you eat. Animal proteins include red meat, poultry, fish, and eggs. ? Eating a normal amount of calcium (1,000?1,300 mg per day). ??? Follow instructions from your health care provider about eating or drinking restrictions. General instructions ??? Collect urine samples as told by your health care provider. You may need to collect a urine sample: ? 24 hours after you pass the stone. ? 8?12 weeks after you pass the kidney stone, and every 6?12 months after that. ??? Strain your urine every time you urinate, for as long as directed. Use the strainer that your health care provider recommends. ??? Do not throw out the kidney stone after passing it. Keep the stone so it can be tested by your health care provider. Testing the makeup of your kidney stone may help prevent you from getting kidney stones in the future. ??? Keep all follow-up visits. You may need follow-up X-rays or ultrasounds to make sure that your stone has passed. How is this prevented? To prevent another kidney stone: ??? Drink enough fluid to keep your urine pale yel (more content not included)...[facility] Future App[facility]ments Appointment Date:05/24/2024 09:00:00 AM Scheduled Provider:Keshav GARCIA MD Location:[facility] Appointment Type:URO New Patient [facility] Evaluation + Plan note Future Appointments Appointment Date:06/06/2024 10:20:00 AM Scheduled Provider:DULCE RAMON PA-C Location:[facility] Appointment Type:URO Office Visit [facility] Evaluation + Plan note Future Appointments Appointment Date:06/07/2024 10:15:00 AM Scheduled Provider:Adela Angeles MD Location:[facility] Appointment Type:URO Office Visit [facility] Hospital course Narrative No data available for this section [facility] Hospital Discharge instructions No data available for this section [facility] Progress note No data available for this section [facility] Summary Purpose Family History No Family History Records FoundNo Family History Records FoundNo Family History Records FoundNo Family History Records Found No data available for this section No data available for this section No data available for this section No data available for this section No data available for this section No Family History Records Found No data available for this section Advance Directives No Advanced Directives Records FoundNo Advanced Directives Records FoundNo Advanced Directives Records FoundNo Advanced Directives Records FoundNo Advanced Directives Records Found Additional Source Comments (unrecognized sect ion and content) No Status Records FoundNo Status Records FoundNo Status Records FoundNo Status Records FoundNo Status Records Found INFORMATION SOURCE (unrecogn ized section and content) DATE CREATED AUTHOR 05/01/2024 [facility] DATE CREATED AUTHOR AUTHOR'S ORGANIZ ATION 06/07/2024 [facility] Patient Care team informatio n (unrecognized section and content) Personnel Name: VALERI SHAW DO Address: Address: [facility] [address] Personnel Name: VALERI SHAW DO Address: Address: [facility] [address] [place] [address] Personnel Name: VALERI SHAW DO Address: Address: [facility] [address] [place] [address] Personnel Name: VALERI SHAW DO Address: Address: [facility] [address] [place] [address] Personnel Name: VALERI SHAW DO Address: Address: [place] [address] [address] Personnel Name: VALERI SHAW DO Eliana Address: Address: [facility] [address] FOR RECORDS PERTAINING TO PATIENTS WHO ARE OR HAVE BEEN ENROLLED IN A CHEMICAL DEPENDENCY/SUBSTANCEABUSE PROGRAM, SOME INFORMATION MAY BE OMITTED. This clinical summary was aggregated from multiple sources. Caution should be exercised in using it in the provision of clinical care. This summary normalizes information from multiple sources, and as a consequence, information in this document may materially change the coding, format and clinical context of patient data. In addition, data may be omitted in some cases. CLINICAL DECISIONS SHOULD BE BASED ON THE PRIMARY CLINICAL RECORDS. [facility]. provides no warranty or guarantee of the accuracy or completeness of information in this document.
[2024-06-14] MEDS: LACTATED RINGER'S SOLUTION 1,000 ML 50 ML IV ×2 (12:26→14:06)
[2024-06-14] MEDS: CEFAZOLIN SODIUM 2 GM/50 ML D5W PREMIX IV (13:26)
[2024-06-14] MEDS: IOHEXOL 300 MG/ML - 50 ML BTL INJ (13:50)
--- NOTE | 2024-06-14 14:57 | P.URON_ITS ---
Urology Surgery Operative Note Operative Note Procedure Date: 06/14/24 Time Out Performed: yes Pre-op Diagnosis: Left ureteral stone Post-op Diagnosis: other (1. Left ureteral stone, 2. Left distal ureteral stricture) Procedures performed: 1. Cystoscopy, left retrograde pyelogram, ureteroscopy laser lithotripsy/stone extraction, stent placement 2. Left ureteral dilation Anesthesia: General-LMA (Dr. Curiel) Primary Surgeon: Adela Angeles Complications: none Estimated blood loss (mL): 0 Findings: Moderate bilobar prostatic hypertrophy with elevated bladder neck. 1+ trabeculated bladder. Radiopaque left distal ureteral stone. L RPG- short stricture 1-2 cm proximal to UO, filling defect just proximal to this consistent with stone, mild hydroureteronephrosis. No extravasation or other filling defects at end of case. Round hard 5 mm dark stone about 2 cm from UVJ underwent laser lithotripsy and stone extraction Specimens: left ureteral stone Drains: 6Fr x 26 cm JJ left ureteral stent Incision: none Indications for Procedures: 74 year old male recently diagnosed with 5x5 mm left distal ureteral stone presents for treatment after failed trial of medical expulsive therapy. After discussion of risks/benefits of management options, the patient elected to proceed with cystoscopy, left retrograde pyelogram, ureteroscopy with laser lithotripsy/stone extraction, ureteral stent placement under general anesthesia. Risks were discussed including but not limited to bleeding, pain, infection, damage to surrounding structures, inability to treat the stone/place a stent, and need for additional procedures. The patient understands the stent is not permanent and needs to be removed or exchanged within 3 months to prevent encrustation, infection, invasive procedures and/or permanent renal damage. Detailed description of Procedure: After informed consent was obtained, the patient was brought to the operating room and transferred onto the operating table in supine position. Sequential compression devices were placed on bilateral lower extremities. The patient received the appropriate dose of preoperative IV antibiotics and general anesthesia LMA was induced. They were positioned in modified dorsolithotomy with the appropriate pressure points padded, prepped, and draped in the usual sterile fashion for this procedure. An operative safety timeout was performed confirming the patient's identity, laterality and procedure, and all present agreed to proceed. I began by inserting a 22 Sinhala rigid cystoscope with 30 degree lens into the patient's urethra and bladder without difficulty. There were no bladder tumors, lesions, stones or foreign bodies. Bilateral ureteral orifices were orthotopic and patent. I turned my attention to the left ureteral orifice and a sensorwire was inserted into the ureter up to the renal pelvis confirmed on fluoroscopy. Next a semirigid ureteroscope was inserted along the wire into the UO and dilute contrast was injected for retrograde pyelogram with findings as above. Careful manipulation of semirigid ureteroscope was unsuccessful reaching the stone due to a pale, dense stricture. Unable to advance ureteroscope over wire. An 8 Fr dilator was passed over the wire without difficulty. The ureteroscope was reinserted alongside the wire, a second wire was advanced into the lumen and the ureteroscope was able to be advanced over the wire until the stone was encountered. This second wire was removed, leaving safety wire in place. A 270 ?m thulium laser fiber was used to dust the stone into tiny fragments. Stone was very hard. Larger remaining fragments were then removed with a 1.8 tipless nitinol basket. Ureteroscopy was performed confirming no stones remained in the ureter. Contrast was injected for retrograde pyelogram confirming no extravasation of contrast, filling defects or hydronephrosis. Pull down u reteroscopy confirmed no stones remained. Due to strictured area that was dilated with visible irritation, stent was placed without the string to allow longer indwelling time. The wire was backloaded through the cystoscope and 6 Fr x 26 cm JJ ureteral stent was advanced over the wire, noting adequate curl in the renal pelvis and bladder on fluoroscopic and direct visualization. The bladder was drained several times to irrigate out the stone fragments and inspected one final time to ensure adequate position of stent and no undue trauma to the bladder was done. The stones were sent for pathology and the cystoscope was removed. The patient tolerated the procedure well without complication. The patient was awakened from anesthesia and sent to PACU in stable condition. Plan: Discharge home with stent pain medications. Follow up in 2-3 weeks for cystoscopy, left ureteral stent removal. Other Provider present: No Post Operative care instructions: See discharge instructions Attending Doc Confirm Attending Attestation: Yes
--- NOTE | 2024-06-14 15:54 | PC.NURSE ---
1525: pt ambulates to bathroom with minimal assistance, pt voids without difficulty. urine bloody with no clots
[2024-06-21 06:08] LABS: Calcium Oxalate Dihydrate 10 % (.); Calcium Oxalate Monohydrate 90 % (.); Size 2x2 mm (.)
== END 2024-06-14 16:00 | disposition home or self-care (01) ==
PROVIDERS: PCP Family Medicine; Visit Provider Urology
PROC: (CPT 52356; principal; 2024-06-14 12:30)
DX: N20.1 Calculus of ureter (principal); N32.89 Other specified disorders of bladder; N40.1 Benign prostatic hyperplasia with lower urinary tract symptoms; N28.89 Other specified disorders of kidney and ureter; R35.0 Frequency of micturition; E78.5 Hyperlipidemia, unspecified; I10 Essential (primary) hypertension
CPT/HCPCS: 52356; 36415; 74420; 82365; 99999; J0690; J1100; J2405; J2704; J3010; Q9967